=== PATIENT | female | born 1940 | race Caucasian/White ===

== ENCOUNTER 2020-05-26 10:25 | Emergency (ER) | payer BC, SELFPAY ==
--- NOTE | 2020-05-26 11:03 | ED_ITS ---
HPI - Abdominal Pain General Chief Complaint: Abdominal Pain Stated Complaint: abd pain Time Seen by Provider: 05/26/20 11:03 Source: patient and old records reviewed Mode of arrival: ambulatory Limitations: no limitations History of Present Illness HPI narrative: reports abdominal pain since almost 1 week but notes 1 month of almost 20lb weight loss, early satiety she is s/p hysterectomy and oophorectomy, came in today after her daughter urged her to have this checked out. MD elicited complaint: abdominal pain Pertinent past history: none Onset (ago): day(s) (5) Pain Consistency: constant Location: epigastric Severity: moderate Quality: aching and fullness Radiation: back Migration to: no migration Exacerbating factors: eating Relieving factors: nothing Associated symptoms: nausea, chills and other (weakness) Related Data Home Medications Medication Instructions Recorded Confirmed amlodipine 1 tab PO DAILY 05/26/20 05/26/20 Previous Rx's Medication Instructions Recorded famotidine [Pepcid] 20 mg PO DAILY PRN #30 tab 05/26/20 hydrocodone-acetaminophen 1 tab PO Q6H PRN #12 tab 05/26/20 ondansetron 4 mg PO Q8H PRN #20 tab 05/26/20 Allergies Allergy/AdvReac Type Severity Reaction Status Date / Time Sulfa (Sulfonamide Allergy Mild RASH Verified 05/26/20 11:20 Antibiotics) [SULFA (SULFONAMIDE ANTIBIOTICS)] Review of Systems Review of Systems Constitutional : pos Weight loss, No Fever, pos Chills ENT/Mouth : No sore throat, No Rhinorrhea Eyes: No Swelling, No Redness Cardiovascular : No Chest Pain, No SOB, NoEdema Respiratory : No Cough, No Sputum, No Wheezing Gastrointestinal : Positive Nausea, no Vomiting, no Diarrhea, positive abdominal Pain, No Hematochezia, No Melena Genitourinary : No Dysuria, No Urinary Frequency, No Hematuria, No Urgency Musculoskeletal : No joint pain, No Myalgias, No Joint Swelling Skin : No Skin Lesions, No rash Neuro : pos Weakness, No Numbness, No Dizziness, No Headache Psych : No Anxiety/Panic, No Depression Heme/Lymph: No Bruising, No Lymphadenopathy Endocrine : No Polyuria, No Polydipsia All other systems reviewed and are negative. Physical Exam Vital Signs: Vital Signs: Last Vital Signs Temp 98.3 F 05/26/20 11:20 Pulse 70 01/26/21 14:08 Resp 14 05/26/20 14:08 BP 155/78 H 05/26/20 14:08 Pulse Ox 96 05/26/20 14:08 Body Mass Index 27.4 Appearance: Alert. Oriented X3. No acute distress. Eyes: Pupils equal, round and reactive to light. ENT: Pharynx normal. Neck: Normal inspection. Neck supple. CVS: Normal heart rate and rhythm. Pulses normal. Respiratory: No respiratory distress. Breath sounds normal. Abdomen: Soft and mild epigastric ttp no rebound or guarding. Skin: Skin warm and dry. Normal skin color. Normal skin turgor. Extremities: No lower extremity edema. No calf ttp Neuro: Oriented X 3. No motor deficit. No sensory deficit. Course Course Course Narrative: discussed findings with patient and need for MRI and MRCP - patient aware of note states her GB surgery had complications so findings could be related to that MDM - Abdominal Pain MDM Narrative Medical decision making narrative: 80 yo female with hx of HTN, hysterectomy/cholecystectomy oophorectomy comes in with almost 20lb weight loss, weakness, early satiety for 1 month over the past week noted upper abdominal pain, at this time will need labs, IV morphine for pain, EKG, CT scan for mass. Lab Data Result diagrams: 05/26/20 11:44 05/26/20 11:44 Labs: Lab Results 05/26/20 05/26/20 05/26/20 Range/Units 11:44 11:44 11:44 WBC 6.4 (4.8-10.8) X10*3/uL RBC 4.40 (4.20-5.50) X10*6/uL Hgb 14.2 (12.0-16.0) g/dl Hct 43.4 (37-47) % MCV 98.6 H (80-98) fL MCH 32.3 (27.0-33.0) pg MCHC 32.7 (31.0-35.0) g/dl RDW 11.9 (11.0-16.0) % Plt Count 293 (160-400) X10*3/uL MPV 8.8 L (9.4-12.3) fL Immature Gran % (Auto) 0.2 (0.0-0.4) % Neut % (Auto) 63.7 (45-73) % Lymph % (Auto) 25.7 (20-40) % [place] % (Auto) 6.3 (2-11) % Eos % (Auto) 3.5 (0-4) % Baso % (Auto) 0.6 (0-2) % Lymph # (Auto) 1.6 (1.2-4.9) X10*3/uL [place] # (Auto) 0.4 (0.1-1.2) X10*3/uL Eos # (Auto) 0.2 (0.0-0.4) X10*3/uL Baso # (Auto) 0.0 (0.0-0.2) X10*3/uL Abs Immat Gran (auto) 0.01 (0.00-0.03) X10*3/uL Absolute Neuts (auto) 4.1 (2.0-8.3) X10*3/uL Absolute Nucleated RBC 0.000 (0.0-0.012) X10*3/uL Nucleated RBC % (auto) 0.0 (0.0-0.2) /100WBC PT 11.9 (10.8-13.0) SEC INR 1.0 (0.9-1.1) APTT 38.8 H (24.1-38.0) SEC Sodium 143 (135-145) mmol/L Potassium 4.1 (3.3-5.1) mmol/l Chloride 103 (96-108) mmol/L Carbon Dioxide 29 (22-29) mmol/L Anion Gap 15 (12-20) BUN 16 (9-16) mg/dL Creatinine 0.81 (0.5-1.4) mg/dL Estim Creat Clear Calc 44.2 Estimated GFR > 60 Random Glucose 90 (60-115) mg/dL Calcium 9.8 (8.4-10.2) mg/dL Magnesium 2.4 (1.6-2.6) mg/dL Total Bilirubin 0.5 (0.0-1.0) mg/dL Direct Bilirubin 0.2 (0.0-0.5) mg/dL AST 18 (5-31) U/L ALT 12 (0-31) U/L Alkaline Phosphatase 58 (39-117) U/L Troponin I High Sens (<3.5-17.0) ng/L Total Protein 6.8 (6.5-8.0) g/dL Albumin 4.6 (3.5-5.0) g/dL Lipase (8-78) U/L COVID-19 ([facility]) (Negative) COVID-19 Clin Com 05/26/20 05/26/20 05/26/20 Range/Units 11:45 11:45 11:45 WBC (4.8-10.8) X10*3/uL RBC (4.20-5.50) X10*6/uL Hgb (12.0-16.0) g/dl Hct (37-47) % MCV (80-98) fL MCH (27.0-33.0) pg MCHC (31.0-35.0) g/dl RDW (11.0-16.0) % Plt Count (160-400) X10*3/uL MPV (9.4-12.3) fL Immature Gran % (Auto) (0.0-0.4) % Neut % (Auto) (45-73) % Lymph % (Auto) (20-40) % [place] % (Auto) (2-11) % Eos % (Auto) (0-4) % Baso % (Auto) (0-2) % Lymph # (Auto) (1.2-4.9) X10*3/uL [place] # (Auto) (0.1-1.2) X10*3/uL Eos # (Auto) (0.0-0.4) X10*3/uL Baso # (Auto) (0.0-0.2) X10*3/uL Abs Immat Gran (auto) (0.00-0.03) X10*3/uL Absolute Neuts (auto) (2.0-8.3) X10*3/uL Absolute Nucleated RBC (0.0-0.012) X10*3/uL Nucleated RBC % (auto) (0.0-0.2) /100WBC PT (10.8-13.0) SEC INR (0.9-1.1) APTT (24.1-38.0) SEC Sodium (135-145) mmol/L Potassium (3.3-5.1) mmol/l Chloride (96-108) mmol/L Carbon Dioxide (22-29) mmol/L Anion Gap (12-20) BUN (9-16) mg/dL Creatinine (0.5-1.4) mg/dL Estim Creat Clear Calc Estimated GFR Random Glucose (60-115) mg/dL Calcium (8.4-10.2) mg/dL Magnesium (1.6-2.6) mg/dL Total Bilirubin (0.0-1.0) mg/dL Direct Bilirubin (0.0-0.5) mg/dL AST (5-31) U/L ALT (0-31) U/L Alkaline Phosphatase (39-117) U/L Troponin I High Sens < 3.5 (<3.5-17.0) ng/L Total Protein (6.5-8.0) g/dL Albumin (3.5-5.0) g/dL Lipase 11 (8-78) U/L COVID-19 ([facility]) Negative (Negative) COVID-19 Clin Com See Note ECG Data Attestation: I personally reviewed and interpreted this ECG as follows: ECG interpretation date: 05/26/20 ECG interpretation time: 11:43 Interpretation: Rate: 71 Rhythm: NSR [place]: left Normal P waves. Normal CECILIO. Normal QRS complex. ST T wave : normal qTC: normal prior studies: no acute ischemia The study has been interpreted contemporaneously by me. . Discharge Plan Discharge Clinical Impression: Abdominal pain Qualifiers: Abdominal location: epigastric Qualified Code(s): R10.13 - Epigastric pain Patient Disposition: Home, Self-Care Instructions: Abdominal Pain (ED) Additional Instructions: CT scan: OF NOTE IF YOU HAD ISSUES DURING SURGERY THIS COULD BE NORMAL BUT YOU STILL NEED MRI/MRCP Interval cholecystectomy. New or increasing intrahepatic extrahepatic biliary duct dilatation and mild dilatation of the main pancreatic duct in the head of the pancreas. No stone seen. Pancreatic mass is not appreciated. Possible ampullary lesion should be considered. Follow-up MR of the pancreas with MRCP should be considered. Severe diverticulosis of the colon. No evidence of diverticulitis. Slight interval increase in size in left adrenal lesion down to represent a fat-containing benign lesion on previous MRI. Stable small liver lesions found to represent hemangiomas. Prescriptions: New hydrocodone-acetaminophen 5-325 mg tablet 1 tab PO Q6H PRN (Reason: pain) Qty: 12 RF: 0 famotidine [Pepcid] 20 mg tablet 20 mg PO DAILY PRN (Reason: abdominal discomfort) Qty: 30 RF: 0 ondansetron 4 mg tablet,disintegrating 4 mg PO Q8H PRN (Reason: nausea and vomiting) Qty: 20 RF: 0 No Action amlodipine 5 mg tablet 1 tab PO DAILY RF: 0 Referrals: Kristopher Larsen MD [Primary Care Provider] - 2 days [facility] Past Medical History Attestation statement: The following information was validated with the patient. Source: old records reviewed Medical History (Updated 05/26/20 @ 14:52 by Maria E Laura DO) Back pain Breast cancer Chronic headaches UTI (urinary tract infection) Surgical History (Updated 05/26/20 @ 11:04 by Maria E Laura DO) History of hysterectomy Hx of cholecystectomy Social History Social History (Updated 05/26/20 @ 11:03 by Maria E Laura DO) Smoking Status: Never smoker Use of substances other than those prescribed or required for medical reasons: No Advance Directives: No Advance Directives Information Provided: Yes
--- NOTE | 2020-05-26 11:17 | CT_ITS ---
EXAMINATION: CT ABDOMEN AND PELVIS WITH CONTRAST CLINICAL INFORMATION: COMPARISON: None TECHNIQUE: Multidetector volumetric images were obtained from the superior aspect of the liver through the pubic symphysis following administration 85 mL of Omnipaque 350 intravenous contrast. Sagittal and coronal reformatted images were obtained on the technologist's workstation. Oral contrast: Yes This CT examination was performed using dose optimization techniques as appropriate, variously including the following: *Automated exposure control *Adjustment of mA and/or kV according to patient size (this includes techniques or standardized protocols for targeted exams where dose is matched to indication/reason for exam; i.e. extremities or head) *Use of iterative reconstruction technique DLP: 662 mGy-cm FINDINGS: LUNG BASES: The visualized lung bases are unremarkable. LIVER, GALLBLADDER, AND BILIARY TREE: There is intrahepatic and extrahepatic biliary duct dilatation. The common bile duct is dilated down to the head of the pancreas. Common bile duct measures 1.3 cm. No stone is appreciated by CT scan. There are 2 low-attenuation lesions in the liver measuring 1 cm axial image 9 series 3 and peripheral right lobe measuring 1 cm axial image 13 series. There is question of a third liver lesion in the left lobe axial image 16 series 3 measuring 1 cm. These are similar to previous MRI and found to represent hemangiomas. The gallbladder has been removed. This is new in the interval from 2014 2015 exam. PANCREAS: There is slight dilatation of the main pancreatic duct in the head of the pancreas measuring 4 mm. This is new or increased from previous exams. SPLEEN: Unremarkable. ADRENAL GLANDS: There is a 1.5 x 2.1 cm low-attenuation left adrenal lesion. This is slightly increased in size from 1.4 x 1.8 cm on most recent exam May 2015. This has signal loss on previous MRI suggestive of a benign fat-containing adrenal lesion. The right adrenal gland is normal. KIDNEYS AND URETERS: The kidneys are normal in size, shape, and attenuation. No hydronephrosis, hydroureter, or calculi seen. No perinephric stranding. BLADDER: Unremarkable. GASTROINTESTINAL TRACT: There is diverticulosis of the colon. No evidence of diverticulitis is seen. The appendix is unremarkable. There is a small hiatal hernia. The stomach is otherwise unremarkable. ABDOMINAL WALL: There is a small umbilical hernia containing fat. LYMPH NODES: Normal. VASCULAR: Unremarkable. PELVIC VISCERA: The uterus appears to have been removed. No pelvic mass is seen. OSSEOUS STRUCTURES: There is curvature of the lower pole lumbar spine and degenerative change. There is a heterogeneous lucent lesion in the L4 vertebral body that appears similar to previous exam probably presents a atypical appearing hemangioma. CT/CT abdomen pelvis w con IMPRESSION: Interval cholecystectomy. New or increasing intrahepatic extrahepatic biliary duct dilatation and mild dilatation of the main pancreatic duct in the head of the pancreas. No stone seen. Pancreatic mass is not appreciated. Possible ampullary lesion should be considered. Follow-up MR of the pancreas with MRCP should be considered. Severe diverticulosis of the colon. No evidence of diverticulitis. Slight interval increase in size in left adrenal lesion down to represent a fat-containing benign lesion on previous MRI. Stable small liver lesions found to represent hemangiomas.
--- NOTE | 2020-05-26 11:18 | ECG_ITS ---
Test Reason : FLANK PAIN Blood Pressure : / mmHG Vent. Rate : 071 BPM Atrial Rate : 071 BPM P-R Int : 164 ms QRS Dur : 084 ms QT Int : 406 ms P-R-T Axes : 038 -11 036 degrees QTc Int : 441 ms Normal sinus rhythm Normal ECG When compared with ECG of 01-NOV-2015 11:52, No significant change was found Referred By: Maria E Laura Electronically Signed By:Sagar Pritchard
[2020-05-26 11:20] VITALS: BP 167/85; PULSE 66; RESP 18; TEMP 36.8; O2SAT 95; BMI 27.4
[2020-05-26 11:51] LABS: MANUAL DIFF FLAG NO
[2020-05-26] MEDS: ondansetron HCL 4 MG/2 ML VIAL IVPUSH (11:55)
[2020-05-26] MEDS: Morphine Sulfate 4 MG/ML CARTRIDGE IVPUSH (11:55)
[2020-05-26] MEDS: 0.9 % Sodium Chloride 500 ML IV (12:00)
[2020-05-26 12:01] VITALS: BP 155/71; PULSE 73; RESP 15; O2SAT 95
[2020-05-26 12:01] LABS: Basophils Percent Auto 0.6 % (0-2); Eosinophils Absolute Auto 0.2 X10*3/uL (0.0-0.4); Eosinophils Percent Auto 3.5 % (0-4); Hematocrit 43.4 % (37-47); Hemoglobin 14.2 g/dl (12.0-16.0); Imm Gran Abs Auto 0.01 X10*3/uL (0.00-0.03); Imm Gran Pct Auto 0.2 % (0.0-0.4); Lymphocytes Absolute Auto 1.6 X10*3/uL (1.2-4.9); Lymphocytes Percent Auto 25.7 % (20-40); Mean Corpuscular HGB Conc 32.7 g/dl (31.0-35.0); Mean Corpuscular Hemoglobin 32.3 pg (27.0-33.0); Mean Corpuscular Volume 98.6 fL (80-98); Mean Platelet Volume 8.8 fL (9.4-12.3); Monocytes Absolute Auto 0.4 X10*3/uL (0.1-1.2); Monocytes Percent Auto 6.3 % (2-11); Neutrophils Absolute Auto 4.1 X10*3/uL (2.0-8.3); Neutrophils Percent Auto 63.7 % (45-73); Platelet Count 293 X10*3/uL (160-400); Red Cell Distribution Width 11.9 % (11.0-16.0); White Blood Count 6.4 X10*3/uL (4.8-10.8)
[2020-05-26 12:04] LABS: Prothrombin Time 11.9 SEC (10.8-13.0)
[2020-05-26 12:07] LABS: Partial Thromboplastin Time 38.8 SEC (24.1-38.0)
[2020-05-26 12:19] VITALS: BP 137/62; PULSE 70; RESP 12; O2SAT 99
[2020-05-26 12:20] LABS: Alanine Aminotransferase 12 U/L (0-31); Albumin Level 4.6 g/dL (3.5-5.0); Alkaline Phosphatase 58 U/L (39-117); Anion Gap 15 (12-20); Aspartate Amino Transferase 18 U/L (5-31); Bilirubin Direct 0.2 mg/dL (0.0-0.5); Bilirubin Total 0.5 mg/dL (0.0-1.0); Blood Urea Nitrogen 16 mg/dL (9-16); Calcium 9.8 mg/dL (8.4-10.2); Carbon Dioxide 29 mmol/L (22-29); Chloride 103 mmol/L (96-108); Creatinine Clr Calc Pharmacy 44.2; Estimated Glomerular Filt Rate > 60; Glucose Random 90 mg/dL (60-115); Magnesium 2.4 mg/dL (1.6-2.6); Potassium 4.1 mmol/l (3.3-5.1); Sodium 143 mmol/L (135-145); Total Protein 6.8 g/dL (6.5-8.0)
[2020-05-26 12:21] LABS: Lipase 11 U/L (8-78)
--- NOTE | 2020-05-26 12:27 | PC.NURSE ---
reassessed patient 15min after giving zofran and morphine. pt states she still feels dizzy but denies pain.
[2020-05-26 12:29] LABS: COVID-19 Test Negative (Negative)
[2020-05-26 12:35] LABS: Troponin-I High Sensitivity < 3.5 ng/L (<3.5-17.0)
[2020-05-26] MEDS: iohexoL 350 MG/ML 100 ML INFUS..BTL 85 ML IV (13:03)
[2020-05-26 14:08] VITALS: BP 155/78; PULSE 70; RESP 14; O2SAT 96
[2020-05-26 14:48] LABS: Glucose Urine UA NEG (NEG); Leukocyte Esterase Urine NEG (NEG); Nitrite Urine NEG (NEG); Urine Blood NEG (NEG); Urine Ketones 5 MG/DL (NEG); Urine Protein NEG (NEG-TRACE)
[2020-05-26 14:51] LABS: Appearance Urine CLEAR; Color Urine YELLOW
== END 2020-05-26 15:30 | disposition home or self-care (01) ==
PROVIDERS: Emergency Provider Emergency Medicine; PCP Internal Medicine
DX: R10.13 Epigastric pain (principal); Z20.822 Contact with and (suspected) exposure to COVID-19; R93.5 Abnormal findings on diagnostic imaging of other abdominal regions, including retroperitoneum; Z85.3 Personal history of malignant neoplasm of breast; Z87.440 Personal history of urinary (tract) infections
CPT/HCPCS: 36415; 74177; 80048; 80076; 81003; 83690; 83735; 84484; 85025; 85610; 85730; 87635; 93005; 96361; 96374; 96375; 99284; 99285; J2270; J2405; Q9967

== ENCOUNTER 2022-04-05 10:12 | Emergency (ER) | payer BC, SELFPAY ==
--- NOTE | 2022-04-05 10:21 | ECG_ITS ---
Test Reason : chest pain Blood Pressure : / mmHG Vent. Rate : 072 BPM Atrial Rate : 072 BPM P-R Int : 152 ms QRS Dur : 082 ms QT Int : 410 ms P-R-T Axes : 027 -17 042 degrees QTc Int : 448 ms Normal sinus rhythm Minimal voltage criteria for LVH, may be normal variant ( R in aVL ) Borderline ECG When compared with ECG of 26-MAY-2020 11:36, No significant change was found Referred By: Generic ED Physician Electronically Signed By:KELLY SHEN MD
[2022-04-05 10:47] LABS: MANUAL DIFF FLAG NO
[2022-04-05 10:49] LABS: Basophils Percent Auto 0.5 % (0-2); Eosinophils Absolute Auto 0.1 X10*3/uL (0.0-0.4); Eosinophils Percent Auto 3.6 % (0-4); Hematocrit 41.7 % (37.0-47.0); Hemoglobin 13.9 g/dl (12.0-16.0); Imm Gran Abs Auto 0.01 X10*3/uL (0.00-0.03); Imm Gran Pct Auto 0.3 % (0.0-0.4); Lymphocytes Absolute Auto 1.2 X10*3/uL (1.2-4.9); Lymphocytes Percent Auto 32.3 % (20-40); Mean Corpuscular HGB Conc 33.3 g/dl (31.0-35.0); Mean Corpuscular Hemoglobin 32.1 pg (27.0-33.0); Mean Corpuscular Volume 96.3 fL (80.0-98.0); Mean Platelet Volume 8.5 fL (9.4-12.3); Monocytes Absolute Auto 0.4 X10*3/uL (0.1-1.2); Monocytes Percent Auto 10.7 % (2-11); Neutrophils Percent Auto 52.6 % (45-73); Platelet Count 266 X10*3/uL (160-400); Red Blood Count 4.33 X10*6/uL (4.20-5.50); Red Cell Distribution Width 12.1 % (11.0-16.0); White Blood Count 3.8 X10*3/uL (4.8-10.8)
[2022-04-05 11:04] LABS: Anion Gap 11 (12-20); Blood Urea Nitrogen 12 mg/dL (9-16); Calcium 9.4 mg/dL (8.4-10.2); Carbon Dioxide 29 mmol/L (22-29); Chloride 102 mmol/L (96-108); Estimated Glomerular Filt Rate > 60; Glucose Random 103 mg/dL (60-115); Potassium 4.1 mmol/L (3.3-5.1); Sodium 138 mmol/L (135-145)
[2022-04-05 11:06] VITALS: BP 137/86; PULSE 69; RESP 14; TEMP 36.6; O2SAT 97; BMI 27.2
--- NOTE | 2022-04-05 11:09 | ED_ITS ---
HPI - General Adult General Chief complaint: Weakness <Jina Arambula MD - Last Filed: 04/05/22 11:10> Stated complaint: N/V/D Weakness/Chest pressure <Jina Arambula MD - Last Filed: 04/05/22 11:10> Time Seen by Provider: 04/05/22 16:24 <Jina Arambula MD - Last Filed: 04/05/22 11:10> Source: patient <Ephraim Wheeler MD - Last Filed: 04/05/22 19:26> Mode of arrival: ambulatory <Ephraim Wheeler MD - Last Filed: 04/05/22 19:26> Limitations: no limitations <Ephraim Wheeler MD - Last Filed: 04/05/22 19:26> History of Present Illness HPI narrative: Patient came here for diarrhea and nausea for last 2 days yesterday patient had multiple episodes of watery stool none today but did not eat much and feel nauseated feels weak temperature at home was 91 degrees but on arrival it is 98 patient had seafood 2 days ago her had same kind of food but no symptoms no fever no chills no CP abdominal pain no use of antibiotic or recent travel patient does feel weak at this time <Ephraim Wheeler MD - Last Filed: 04/05/22 19:26> Related Data Home medications: Home Medications Medication Instructions Recorded Confirmed amlodipine 5 mg tablet 1 tab PO DAILY 05/26/20 05/26/20 Previous Rx's Medication Instructions Recorded famotidine 20 mg tablet (Pepcid) 20 mg PO DAILY PRN abdominal 05/26/20 discomfort #30 tabs hydrocodone 5 mg-acetaminophen 325 1 tab PO Q6H PRN pain #12 tabs 05/26/20 mg tablet ondansetron 4 mg disintegrating 4 mg PO Q8H PRN nausea and 05/26/20 tablet vomiting #20 tabs <Jina Arambula MD - Last Filed: 04/05/22 11:10> Allergies/adverse reactions: Allergies Allergy/AdvReac Type Severity Reaction Status Date / Time Sulfa (Sulfonamide Allergy Mild RASH Verified 05/26/20 11:20 Antibiotics) [SULFA (SULFONAMIDE ANTIBIOTICS)] <Jina Arambula MD - Last Filed: 04/05/22 11:10> Review of Systems Review of Systems: Yes all other systems are reviewed and are negative <Ephraim Wheeler MD - Last Filed: 04/05/22 19:26> [facility] Past Medical History Medical History: Medical History Back pain Breast cancer Chronic headaches UTI (urinary tract infection) <Jina Arambula MD - Last Filed: 04/05/22 11:10> Surgical History: Surgical History History of hysterectomy Hx of cholecystectomy <Jina Arambula MD - Last Filed: 04/05/22 11:10> Social History Social History: Social History Alcohol intake: never Smoked in Last 30 Days: No Use of substances other than those prescribed or required for medical reasons: No Advance Directives: No Advance Directives Information Provided: No <Jina Arambula MD - Last Filed: 04/05/22 11:10> Physical Exam ED Vital Signs: Vital Signs - 24 hr 04/05/22 11:06 04/05/22 17:33 04/05/22 19:10 Temperature 98 F 98.2 F Pulse Rate 69 59 58 Respiratory Rate 14 18 15 Blood Pressure 137/86 153/58 H 167/68 H Pulse Oximetry 97 96 96 Oxygen Delivery Method Room Air Room Air Room Air BMI result Body Mass Index 27.2 <Jina Arambula MD - Last Filed: 04/05/22 11:10> Vital Signs - 24 hr 04/05/22 11:06 04/05/22 17:33 04/05/22 19:10 Temperature 98 F 98.2 F Pulse Rate 69 59 58 Respiratory Rate 14 18 15 Blood Pressure 137/86 153/58 H 167/68 H Pulse Oximetry 97 96 96 Oxygen Delivery Method Room Air Room Air Room Air BMI result Body Mass Index 27.2 <Ephraim Wheeler MD - Last Filed: 04/05/22 19:26> Appearance: Alert. Oriented X3. No acute distress. Eyes: PERRLA, No Nystagmus ENT: Pharynx normal. Oral Mucosa dry Neck: Normal inspection. Neck supple. CVS: Normal heart rate and rhythm. Pulses normal. Respiratory: No respiratory distress. Equal air entry bilateral, no wheezing/rales/rhonchi Abdomen: Soft and nontender. Bowel sounds are present, no mass palpable, no CVA tenderness Skin: Skin warm and dry. Normal skin color. Normal skin turgor. Extremities: No lower extremity edema. No calf tenderness Neuro: Oriented X 3. No motor deficit. No sensory deficit.No cerebellar signs , cranial nerves II-XII intact <Ephraim Wheeler MD - Last Filed: 04/05/22 19:26> Course Course Course Narrative: 81F feeling weak, vomiting without blood, no fever. VS Reviewed GEN: NAD Lungs: CTAB CVS: RRR ABD: NT/ND <Jina Arambula MD - Last Filed: 04/05/22 11:10> Medications Administered Discontinued Medications Generic Name Dose Route Start Last Admin Trade Name Freq PRN Reason Stop Dose Admin Sodium Chloride 1,000 mls @ 999 mls/hr 04/05/22 16:30 04/05/22 18:43 Ns IV 04/05/22 17:30 Infused .Q1H1M ONE Infusion <Jina Arambula MD - Last Filed: 04/05/22 11:10> Medications Administered Discontinued Medications Generic Name Dose Route Start Last Admin Trade Name Freq PRN Reason Stop Dose Admin Sodium Chloride 1,000 mls @ 999 mls/hr 04/05/22 16:30 04/05/22 18:43 Ns IV 04/05/22 17:30 Infused .Q1H1M ONE Infusion <Ephraim Wheeler MD - Last Filed: 04/05/22 19:26> Medical Decision Making Medical Decision Making [facility] Narrative: Patient lab workup normal taking p.o. fluids given IV fluids feeling much better now discharged home <Ephraim Wheeler MD - Last Filed: 04/05/22 19:26> Differential Diagnoses: Differential diagnosis (Gastroenteritis, pancreatitis, gastritis, food poisoning) Differential Diagnosis: The differential diagnosis associated with the patient?s presentation includes: <Ephraim Wheeler MD - Last Filed: 04/05/22 19:26> Independent interpretation of EKG, rhythm strip, radiology study: Independent interp EKG,rhythm strip, radiology study My interpretation is <Ephraim Wheeler MD - Last Filed: 04/05/22 19:26> Discharge Plan Discharge Clinical Impression: Acute gastroenteritis <Jina Arambula MD - Last Filed: 04/05/22 11:10> Patient Disposition: Home, Self-Care <Jina Arambula MD - Last Filed: 04/05/22 11:10> Instructions: Gastroenteritis (ED) <Jina Arambula MD - Last Filed: 04/05/22 11:10> Additional Instructions: Drink plenty of fluids Follow with PCP if any concerns <Jina Arambula MD - Last Filed: 04/05/22 11:10> Prescriptions: No Action amlodipine 5 mg tablet 1 tab PO DAILY Rx Instructions: BLOOD PRESSURE HAS BEEN LOW hydrocodone-acetaminophen 5-325 mg tablet 1 tab PO Q6H PRN (Reason: pain) Qty: 12 0RF famotidine [Pepcid] 20 mg tablet 20 mg PO DAILY PRN (Reason: abdominal discomfort) Qty: 30 0RF ondansetron 4 mg tablet,disintegrating 4 mg PO Q8H PRN (Reason: nausea and vomiting) Qty: 20 0RF <Jina Arambula MD - Last Filed: 04/05/22 11:10>
[2022-04-05 11:33] LABS: Appearance Urine Clear; Color Urine Yellow; Glucose Urine UA Negative (Negative); Leukocyte Esterase Urine Trace (Negative); Nitrite Urine Negative (Negative); PH 6.5 (5.0-9.0); Specific Gravity - Urine <= 1.005 (1.005-1.025); UMIC TRIGGER UACC YES; Urine Blood Negative (Negative); Urine Ketones Negative (Negative); Urine Protein Negative (Neg-Trace)
[2022-04-05 11:41] LABS: Bacteria Urine None Seen (None Seen); Hyaline Casts Urine 0-2 /LPF (0-2); RBC Urine 0-2 /HPF (0-2); Squamous Epithelial Cell Urine 0-2 /HPF (0-2); WBC Urine 0-5 /HPF (0-5)
[2022-04-05 12:13] LABS: Influenza A PCR NEGATIVE (Negative); Influenza B PCR NEGATIVE (Negative); Resp Syncy Virus RNA Qual PCR NEGATIVE (Negative); SARS COV2 PCR INHOUSE NEGATIVE (Negative)
[2022-04-05 17:33] VITALS: BP 153/58; PULSE 59; RESP 18; O2SAT 96
[2022-04-05] MEDS: 0.9 % Sodium Chloride 1,000 ML 999 ML IV (17:50)
[2022-04-05 18:20] LABS: Lipase 15 U/L (8-78)
[2022-04-05 19:10] VITALS: BP 167/68; PULSE 58; RESP 15; TEMP 36.8; O2SAT 96
== END 2022-04-05 19:31 | disposition home or self-care (01) ==
PROVIDERS: Emergency Provider Internal Medicine; PCP Internal Medicine
DX: K52.9 Noninfective gastroenteritis and colitis, unspecified (principal); R53.1 Weakness; R11.2 Nausea with vomiting, unspecified; Z20.822 Contact with and (suspected) exposure to COVID-19; Z79.899 Other long term (current) drug therapy
CPT/HCPCS: 0241U; 36415; 80048; 81001; 83690; 85025; 93005; 96360; 99284; 99285

== ENCOUNTER 2022-09-14 18:30 | Emergency (ER) | payer MEDICARE, SELFPAY ==
--- NOTE | ~2022-09-14 | CT_ITS ---
EXAMINATION: CT ABDOMEN AND PELVIS WITHOUT CONTRAST CLINICAL INFORMATION: Back pain. Left upper quadrant pain. COMPARISON: Baseline CT of the abdomen and pelvis done on 04/21/2015 and MRI of the abdomen done on 05/06/2015 MRI of the pelvis done on 05/08/[address] recent prior CT of the abdomen and pelvis done on 05/26/2020. TECHNIQUE: Multidetector volumetric imaging was performed from the superior aspect of the liver through the pubic symphysis. Sagittal and coronal reformatted images were obtained on the technologist's workstation. This CT examination was performed using dose optimization techniques as appropriate, variously including the following: *Automated exposure control *Adjustment of mA and/or kV according to patient size (this includes techniques or standardized protocols for targeted exams where dose is matched to indication/reason for exam; i.e. extremities or head) *Use of iterative reconstruction technique DLP: 531 mGy-cm FINDINGS: LUNG BASES: The visualized lung bases are unremarkable. LIVER, GALLBLADDER, AND BILIARY TREE: Persistent moderate intrahepatic biliary ductal dilatation is noted with dilated common bile duct seen to the level of the ampulla, appears similar to prior most recent CT of the abdomen and pelvis dated 05/26/2020. The gallbladder is surgically absent. Previously described, clinically known multifocal presumed hemangioma is are not visualized on this nonenhanced study. PANCREAS: Subtle pancreatic ductal prominence is present, otherwise no discrete pancreatic mass is visualized on this nonenhanced study. SPLEEN: Unremarkable. ADRENAL GLANDS: The right adrenal gland is unremarkable. There is a 2 cm stable left adrenal adenoma present, unchanged since 04/21/2015. KIDNEYS AND URETERS: The kidneys are normal in size, shape, and attenuation. No hydronephrosis, hydroureter, or calculi seen. No perinephric stranding. Incidental note is made of bilateral extrarenal pelvis. BLADDER: Unremarkable. GASTROINTESTINAL TRACT: Colonic diverticulosis without any CT features of superimposed acute diverticulitis. Nonvisualized appendix without any inflammatory changes around the cecum. Significant fecal residual is noted throughout the entire large bowel. A short segment narrowing is present in the distal part of the sigmoid colon (534:4). Direct visualization is recommended, if not recently performed for further clarification. There are no pericolonic lymphadenopathy present. ABDOMINAL WALL: Small umbilical fat-containing hernia. Supra umbilical fat containing ventral hernia is also present, similar to prior study dated 05/26/2020. LYMPH NODES: There are no pathologically enlarged retroperitoneal, pelvic and/or inguinal lymphadenopathy. VASCULAR: Diffuse atherosclerotic disease of the aorta and is branches without aneurysm formation, unchanged. PELVIC VISCERA: There is no pelvic mass present. No evidence of any free fluid and/or free air. OSSEOUS STRUCTURES: Moderate diffuse osteopenia and stable hemangioma involving L4 and multilevel degenerative spondylosis. CT/CT abdomen pelvis wo IV con IMPRESSION: 1. No CT evidence of any acute intra-abdominal and/or intrapelvic pathology is present. 2. Persistent moderate intrahepatic biliary ductal dilatation and dilated common bile duct seen to the level of the ampulla, appears similar to prior most recent CT of the abdomen and pelvis dated 05/26/2020. 3. Stable 2 cm left adrenal adenoma, unchanged since 04/21/2015. 4. Colonic diverticulosis without any CT features of superimposed acute diverticulitis. 5. Short segment narrowing is present in the distal part of the sigmoid colon, for which direct visualization is recommended, if not recently performed for further clarification. 6. Moderate diffuse osteopenia and stable hemangioma involving L4 and multilevel degenerative spondylosis. Fleischner guidelines were followed.
--- NOTE | 2022-09-14 18:39 | ED_ITS ---
HPI - Abdominal Pain General Chief Complaint: Back Pain/Injury <TERENCE Nuñez - Last Filed: 09/14/22 18:50> Stated Complaint: abd pain <TERENCE Nuñez - Last Filed: 09/14/22 18:50> Time Seen by Provider: 09/14/22 20:07 <TERENCE Nuñez - Last Filed: 09/14/22 18:50> Source: patient <TERENCE Nieves - Last Filed: 09/14/22 22:43> Mode of arrival: ambulatory <TERENCE Nieves - Last Filed: 09/14/22 22:43> Limitations: no limitations <TERENCE Nieves Last Filed: 09/14/22 22:43> History of Present Illness HPI narrative: This is an 82-year-old female history of GERD, hypertension presenting to the emergency department for evaluation of epigastric pain with radiation to left flank for the past 2 days. Patient reports the pain is severe, intermittent in nature. Denies any pain like this in the past. Patient reports associated nausea however no vomiting. Patient denies urinary frequency, urgency, dysuria, fevers, chills, chest pain, shortness of breath, headache, urinary/bowel incontinence/retention, saddle paresthesias,, changes in gait, vision changes and dizziness. Last colonoscopy was 2-3 years ago w/ premalignant polyps. No rectal bleeding or changes in bowel habits. <TERENCE Nieves - Last Filed: 09/14/22 22:43> Related Data Home Medications: Home Medications Medication Instructions Recorded Confirmed amlodipine 5 mg tablet 1 tab PO DAILY 05/26/20 05/26/20 Previous Rx's Medication Instructions Recorded famotidine 20 mg tablet (Pepcid) 20 mg PO DAILY PRN abdominal 05/26/20 discomfort #30 tabs hydrocodone 5 mg-acetaminophen 325 1 tab PO Q6H PRN pain #12 tabs 05/26/20 mg tablet ondansetron 4 mg disintegrating 4 mg PO Q8H PRN nausea and 05/26/20 tablet vomiting #20 tabs lidocaine 5 % topical patch 1 patch topical DAILY PRN pain #15 09/14/22 ea morphine 15 mg immediate release 15 mg PO Q6H PRN pain 5 days #10 09/14/22 tablet tabs ondansetron 4 mg disintegrating 4 mg PO Q6H PRN nausea and 09/14/22 tablet vomiting #14 tabs <TERENCE Nuñez Last Filed: 09/14/22 18:50> Allergies/Adverse Reactions: Allergies Allergy/AdvReac Type Severity Reaction Status Date / Time Sulfa (Sulfonamide Allergy Mild RASH Verified 05/26/20 11:20 Antibiotics) [SULFA (SULFONAMIDE ANTIBIOTICS)] <TERENCE Nuñez Last Filed: 09/14/22 18:50> Review of Systems Review of Systems Constitutional : No Weight loss, No Fever, No Chills, No Fatigue, No Malaise ENT/Mouth : No sore throat, No Rhinorrhea Eyes: No Eye Pain, No Swelling, No Redness Cardiovascular : No Chest Pain, No SOB, No Dyspnea on Exertion, No Orthopnea, No Edema, No Palpitations Respiratory : No Cough, No Sputum, No Wheezing Gastrointestinal : + Nausea, No Vomiting, No Diarrhea, No Constipation, + abdom inal Pain, No Hematochezia, No Melena Genitourinary : No Dysuria, No Urinary Frequency, No Hematuria, Musculoskeletal : No joint pain, No Myalgias, No Joint Swelling Skin : No Skin Lesions, No rash Neuro : No Weakness, No Numbness, No Dizziness, No Headache Psych : No Anxiety/Panic, No Depression All other systems reviewed and are negative <TERENCE Nieves Last Filed: 09/14/22 22:43> Yes all other systems are reviewed and are negative <TERENCE Nieves Last Filed: 09/14/22 22:43> ON LICENSE OF [facility] Past Medical History Attestation statement: The following information was validated with the patient. <TERENCE Nieves Last Filed: 09/14/22 22:43> Source: old records reviewed and nursing notes reviewed <TERENCE Nieves ast Filed: 09/14/22 22:43> Medical History: Medical History Back pain Breast cancer Chronic headaches UTI (urinary tract infection) <TERENCE Nuñez Last Filed: 09/14/22 18:50> Surgical History: Surgical History History of hysterectomy Hx of cholecystectomy <TERENCE Nuñez - Last Filed: 09/14/22 18:50> Social History Social History: Social History Alcohol intake: never Smoked in Last 30 Days: No Use of substances other than those prescribed or required for medical reasons: No Advance Directives: No Advance Directives Information Provided: No <TERENCE Nuñez - Last Filed: 09/14/22 18:50> Physical Exam ED Vital Signs: Vital Signs - 24 hr 09/14/22 18:45 09/14/22 20:21 09/14/22 22:01 Temperature 98.9 F 98 F 98 F Pulse Rate 82 63 64 Respiratory Rate 18 18 16 Blood Pressure 167/82 H 152/67 H 129/68 Pulse Oximetry 97 96 92 Oxygen Delivery Method Room Air Room Air Room Air BMI result Body Mass Index 27.5 <TERENCE Nuñez - Last Filed: 09/14/22 18:50> Vital Signs - 24 hr 09/14/22 18:45 09/14/22 20:21 09/14/22 22:01 Temperature 98.9 F 98 F 98 F Pulse Rate 82 63 64 Respiratory Rate 18 18 16 Blood Pressure 167/82 H 152/67 H 129/68 Pulse Oximetry 97 96 92 Oxygen Delivery Method Room Air Room Air Room Air BMI result Body Mass Index 27.5 vss <TERENCE Nieves - Last Filed: 09/14/22 22:43> Appearance: Alert.? Oriented X3.? No acute distress.? Head: Normocephalic, atraumatic, no step-offs or deformities Eyes: Pupils equal, round and reactive to light.? CVS: Normal heart rate and rhythm.? Pulses normal.? Respiratory: No respiratory distress.? Breath sounds normal.? Abdomen: Soft and TTP to epigastric region and LUQ. Normal BS. Skin: Skin warm and dry.? Normal skin color.? Normal skin turgor.? Extremities: No lower extremity edema.? No calf ttp. 5/5 strength to bilateral upper and lower extremities Back: No midline tenderness, no C-spine tenderness, full range of motion, no CVA tenderness bilaterally Neuro: Oriented X 3.? No motor deficit.? No sensory deficit. CN 2-12 intact. AMbulating w/ steady gait normal coordination. <TERENCE Nieves - Last Filed: 09/14/22 22:43> Course Course Course Narrative: RME 82 yo female with a PMH breast cancer, asthma ,hypertension, and oo phertecomny of here for intermittent middle back pain radiating to her LUQ that feels contraction like. She is having regular stools without blood, reports no dysuria or blood in her urine. Plan: CBC, CMP, CT abdomen <TERENCE Nuñez - Last Filed: 09/14/22 18:50> Reevaluation(s) Reevaluation #1: CBC with no acute findings. Chemistry unremarkable. Normal lipase. UA without infection. No bacteria visualized. This could be musculoskeletal pain. Will give morphine. <TERENCE Nieves - Last Filed: 09/14/22 22:43> Time: 21:00 <TERENCE Nieves - Last Filed: 09/14/22 22:43> Reevaluation #2: CT of the abdomen and pelvis with no evidence of any acute intra-abdominal an or intrapelvic pathology. Persistent moderate intrahepatic bile early duct dilation common bile duct seen to the level to ambulate appears similar to previous scans. 2 cm left adrenal adenoma. Unchanged from previous. Colonic diverticulosis without diverticulitis. There is short segment narrowing in the distal part of the sigmoid colon. Spoke to my attending who recommends out patient GI f/u. <TERENCE Nieves - Last Filed: 09/14/22 22:43> Time: 21:12 <TERENCE Nieves Last Filed: 09/14/22 22:43> Reevaluation #3: Patient feeling bettter educated on CT findings, tollerating PO. Will have her follow up with GI. Educated patient on diagnosis and treatment plan, answered all question, patient verbalizes understanding. At this time patient will be discharged home, advised to return with new or worsening symptoms. Educated on worrisome signs and symptoms and when to return. At this time I feel comfortable discharge home. <TERENCE Nieves - Last Filed: 09/14/22 22:43> Time: 22:42 <TERENCE Nieves - Last Filed: 09/14/22 22:43> Medical Decision Making Medical Decision Making [facility] Narrative: 82-year-old female presents with epigastric pain with radiation to left flank region, with associated nausea . PE w/ Soft and TTP to epigastric region and LUQ. Normal BS. Concerns for UTI vs pylo vs kidney stone vs msk pain. No signs of acute abdomen, cauda equina, epidural abscess. Other differential malignancy Plan- labs,imaging, ua, <TERENCE Nieves - Last Filed: 09/14/22 22:43> Differential Diagnosis Differential Diagnoses: The differential diagnosis associated with the presentation includes <TERENCE Nieves - Last Filed: 09/14/22 22:43> Concerns for UTI vs pylo vs kidney stone vs msk pain. No signs of acute abdomen, cauda equina, epidural abscess. Other differential malignancy <TERENCE Nieves - Last Filed: 09/14/22 22:43> Admission/Observation Consideration of admission/observation: Escalation of care including admission/observation considered <TERENCE Nieves - Last Filed: 09/14/22 22:43> [place] <TEERNCE Nieves - Last Filed: 09/14/22 22:43> Consult Healthcare Provider Management of the patient was discussed with: Rn Peritoneal Dialysis ( ) <TERENCE Nieves - Last Filed: 09/14/22 22:43> Lab Data [facility] Lab Attestation statement: I reviewed the patient's lab results. <TERENCE Nieves - Last Filed: 09/14/22 22:43> Result Diagrams: 09/14/22 18:43 09/14/22 18:43 <TERENCE Nuñez - Last Filed: 09/14/22 18:50> Labs: Lab Results 09/14/22 09/14/22 09/14/22 Range/Units 18:43 18:43 19:36 WBC 7.2 (4.8-10.8) X10*3/uL RBC 4.07 L (4.20-5.50) X10*6/uL Hgb 13.2 (12.0-16.0) g/dl Hct 39.1 (37.0-47.0) % MCV 96.1 (80.0-98.0) fL MCH 32.4 (27.0-33.0) pg MCHC 33.8 (31.0-35.0) g/dl RDW 12.1 (11.0-16.0) % Plt Count 287 (160-400) X10*3/uL MPV 8.3 L (9.4-12.3) fL Immature Gran % (Auto) 0.3 (0.0-0.4) % Neut % (Auto) 50.1 (45-73) % Lymph % (Auto) 35.7 (20-40) % Anderson % (Auto) 8.9 (2-11) % Eos % (Auto) 4.4 H (0-4) % Baso % (Auto) 0.6 (0-2) % Lymph # (Auto) 2.6 (1.2-4.9) X10*3/uL Anderson # (Auto) 0.6 (0.1-1.2) X10*3/uL Eos # (Auto) 0.3 (0.0-0.4) X10*3/uL Baso # (Auto) 0.0 (0.0-0.2) X10*3/uL Abs Immat Gran (auto) 0.02 (0.00-0.03) X10*3/uL Absolute Neuts (auto) 3.6 (2.0-8.3) x10*3/uL Absolute Nucleated RBC 0.000 (0.0-0.012) X10*3/uL Nucleated RBC % (auto) 0.0 (0.0-0.2) /100WBC Sodium 137 (135-145) mmol/L Potassium 4.2 (3.3-5.1) mmol/L Chloride 101 (96-108) mmol/L Carbon Dioxide 30 H (22-29) mmol/L Anion Gap 10 L (12-20) BUN 12 (9-16) mg/dL Creatinine 0.78 (0.5-1.4) mg/dL Estim Creat Clear Calc 46.3 Estimated GFR > 60 Random Glucose 93 (60-115) mg/dL Calcium 9.5 (8.4-10.2) mg/dL Magnesium 2.0 (1.6-2.6) mg/dL Total Bilirubin 0.7 (0.0-1.0) mg/dL Direct Bilirubin 0.2 (0.0-0.5) mg/dL AST 19 (5-31) U/L ALT 15 (0-31) U/L Alkaline Phosphatase 61 (39-117) U/L Total Protein 6.3 L (6.5-8.0) g/dL Albumin 4.2 (3.5-5.0) g/dL Lipase 15 (8-78) U/L Urine Color Yellow Urine Appearance Clear Urine pH 7.5 (5.0-9.0) Ur Specific [place] <= 1.005 (1.005-1.025) Urine Protein Negative (Neg-Trace) mg/dL Urine Glucose (UA) Negative (Negative) mg/dL Urine Ketones Negative (Negative) mg/dL Urine Blood Negative (Negative) Urine Nitrite Negative (Negative) Ur Leukocyte Esterase Small (1+) H (Negative) Urine RBC 0-2 (0-2) /HPF Urine WBC 0-5 (0-5) /HPF Ur Squamous Epith Cells 0-2 (0-2) /HPF Urine Bacteria None Seen (None Seen) Hyaline Casts 0-2 (0-2) /LPF <TERENCE Nuñez - Last Filed: 09/14/22 18:50> Lab Results 09/14/22 09/14/22 09/14/22 Range/Units 18:43 18:43 19:36 WBC 7.2 (4.8-10.8) X10*3/uL RBC 4.07 L (4.20-5.50) X10*6/uL Hgb 13.2 (12.0-16.0) g/dl Hct 39.1 (37.0-47.0) % MCV 96.1 (80.0-98.0) fL MCH 32.4 (27.0-33.0) pg MCHC 33.8 (31.0-35.0) g/dl RDW 12.1 (11.0-16.0) % Plt Count 287 (160-400) X10*3/uL MPV 8.3 L (9.4-12.3) fL Immature Gran % (Auto) 0.3 (0.0-0.4) % Neut % (Auto) 50.1 (45-73) % Lymph % (Auto) 35.7 (20-40) % Anderson % (Auto) 8.9 (2-11) % Eos % (Auto) 4.4 H (0-4) % Baso % (Auto) 0.6 (0-2) % Lymph # (Auto) 2.6 (1.2-4.9) X10*3/uL Anderson # (Auto) 0.6 (0.1-1.2) X10*3/uL Eos # (Auto) 0.3 (0.0-0.4) X10*3/uL Baso # (Auto) 0.0 (0.0-0.2) X10*3/uL Abs Immat Gran (auto) 0.02 (0.00-0.03) X10*3/uL Absolute Neuts (auto) 3.6 (2.0-8.3) x10*3/uL Absolute Nucleated RBC 0.000 (0.0-0.012) X10*3/uL Nucleated RBC % (auto) 0.0 (0.0-0.2) /100WBC Sodium 137 (135-145) mmol/L Potassium 4.2 (3.3-5.1) mmol/L Chloride 101 (96-108) mmol/L Carbon Dioxide 30 H (22-29) mmol/L Anion Gap 10 L (12-20) BUN 12 (9-16) mg/dL Creatinine 0.78 (0.5-1.4) mg/dL Estim Creat Clear Calc 46.3 Estimated GFR > 60 Random Glucose 93 (60-115) mg/dL Calcium 9.5 (8.4-10.2) mg/dL Magnesium 2.0 (1.6-2.6) mg/dL Total Bilirubin 0.7 (0.0-1.0) mg/dL Direct Bilirubin 0.2 (0.0-0.5) mg/dL AST 19 (5-31) U/L ALT 15 (0-31) U/L Alkaline Phosphatase 61 (39-117) U/L Total Protein 6.3 L (6.5-8.0) g/dL Albumin 4.2 (3.5-5.0) g/dL Lipase 15 (8-78) U/L Urine Color Yellow Urine Appearance Clear Urine pH 7.5 (5.0-9.0) Ur Specific [place] <= 1.005 (1.005-1.025) Urine Protein Negative (Neg-Trace) mg/dL Urine Glucose (UA) Negative (Negative) mg/dL Urine Ketones Negative (Negative) mg/dL Urine Blood Negative (Negative) Urine Nitrite Negative (Negative) Ur Leukocyte Esterase Small (1+) H (Negative) Urine RBC 0-2 (0-2) /HPF Urine WBC 0-5 (0-5) /HPF Ur Squamous Epith Cells 0-2 (0-2) /HPF Urine Bacteria None Seen (None Seen) Hyaline Casts 0-2 (0-2) /LPF <TERENCE Nieves - Last Filed: 09/14/22 22:43> Independent Interpretation I performed an independent interpretation of an: CT Scan <TERENCE Nieves - Last Filed: 09/14/22 22:43> Radiology Impression Discussion of test interpretation with radiology: I have reviewed the radiologist's reading. <TERENCE Nieves - Last Filed: 09/14/22 22:43> Core Measures AMI core measures followed: Yes <TERENCE Nieves - Last Filed: 09/14/22 22:43> Measure exclusions: not indicated <TERENCE Nieves - Last Filed: 09/14/22 22:43> Medications Administered Discontinued Medications Generic Name Dose Route Start Last Admin Trade Name Freq PRN Reason Stop Dose Admin Morphine Sulfate 2 mg 09/14/22 21:04 09/14/22 21:30 Morphine Sulfate 2 Mg/Ml Cartridge IVPUSH 09/14/22 21:05 2 mg ONCE ONE Administration Protocol Ondansetron HCl 4 mg 09/14/22 21:04 09/14/22 21:29 Ondansetron Hcl 4 Mg/2 Ml Vial IVPUSH 09/14/22 21:05 4 mg ONCE ONE Administration <TERENCE Nuñez - Last Filed: 09/14/22 18:50> Medications Administered Discontinued Medications Generic Name Dose Route Start Last Admin Trade Name Ruddy PRN Reason Stop Dose Admin Morphine Sulfate 2 mg 09/14/22 21:04 09/14/22 21:30 Morphine Sulfate 2 Mg/Ml Cartridge IVPUSH 09/14/22 21:05 2 mg ONCE ONE Administration Protocol Ondansetron HCl 4 mg 09/14/22 21:04 09/14/22 21:29 Ondansetron Hcl 4 Mg/2 Ml Vial IVPUSH 09/14/22 21:05 4 mg ONCE ONE Administration <TERENCE Nieves - Last Filed: 09/14/22 22:43> Critical Care Time Critical Care Time Critical Care Time: No <TERENCE Nieves - Last Filed: 09/14/22 22:43> Discharge Plan Discharge Clinical Impression: Left sided abdominal pain, Left flank pain <TERENCE Nuñez - Last Filed: 09/14/22 18:50> Patient Disposition: Home, Self-Care <TERENCE Nuñez - Last Filed: 09/14/22 18:50> Instructions: Abdominal Pain (ED), Flank Pain (ED) <TERENCE Nuñez - Last Filed: 09/14/22 18:50> Additional Instructions: Take your medications as prescribed. If you were prescribed antibiotics today, it is important that you take your medication to their entirety, do not skip any doses, do not finish them early. Follow-up with your primary care provider this week. Follow up with GI within the next week. Return to the emergency department with new or worsening symptoms. In case of emergency call 911 A narcotic has been sent to your pharmacy please take this as prescribed. Do not take more than the prescribed dose. Narcotic medications can cause addiction. Please do not mix them with alcohol. Do not take them while driving or operating machinery. Do not take them with any other narcotics. Do not share them with friends or family. They can cause constipation. Take them only for severe pain. CT/CT abdomen pelvis wo IV con IMPRESSION: 1.? No CT evidence of any acute intra-abdominal and/or intrapelvic pathology is present. 2.? Persistent moderate intrahepatic biliary ductal dilatation and dilated common bile duct seen to the level of the ampulla, appears similar to prior most recent CT of the abdomen and pelvis dated 05/26/2020. 3.? Stable 2 cm left adrenal adenoma, unchanged since 04/21/2015. 4.? Colonic diverticulosis without any CT features of superimposed acute diverticulitis. 5.? Short segment narrowing is present in the distal part of the sigmoid colon, for which direct visualization is recommended, if not recently performed for further clarification. 6.? Moderate diffuse osteopenia and stable hemangioma involving L4 and multilevel degenerative spondylosis. ? Fleischner guidelines were followed. <TERENCE Nuñez - Last Filed: 09/14/22 18:50> Prescriptions: New morphine 15 mg tablet 15 mg PO Q6H PRN (Reason: pain) 5 Days Qty: 10 0RF Rx Instructions: Partial Fill upon patient request. ondansetron 4 mg tablet,disintegrating 4 mg PO Q6H PRN (Reason: nausea and vomiting) Qty: 14 0RF lidocaine 5 % adhesive patch,medicated 1 patch topical DAILY PRN (Reason: pain) Qty: 15 0RF Rx Instructions: leave on most painful area for up to 12 hrs No Action amlodipine 5 mg tablet 1 tab PO DAILY Rx Instructions: BLOOD PRESSURE HAS BEEN LOW hydrocodone-acetaminophen 5-325 mg tablet 1 tab PO Q6H PRN (Reason: pain) Qty: 12 0RF famotidine [Pepcid] 20 mg tablet 20 mg PO DAILY PRN (Reason: abdominal discomfort) Qty: 30 0RF ondansetron 4 mg tablet,disintegrating 4 mg PO Q8H PRN (Reason: nausea and vomiting) Qty: 20 0RF <TERENCE Nuñez - Last Filed: 09/14/22 18:50> Referrals: [facility] [place] [facility] [Provider Group] - 1 week <TERENCE Nuñez - Last Filed: 09/14/22 18:50> Stand Alone Forms: Work/School Release <TERENCE Nuñez - Last Filed: 09/14/22 18:50>
[2022-09-14 18:45] VITALS: BP 167/82; PULSE 82; RESP 18; TEMP 37.2; O2SAT 97; BMI 27.5
[2022-09-14 18:47] LABS: MANUAL DIFF FLAG NO
[2022-09-14 18:49] LABS: Basophils Percent Auto 0.6 % (0-2); Eosinophils Absolute Auto 0.3 X10*3/uL (0.0-0.4); Eosinophils Percent Auto 4.4 % (0-4); Hematocrit 39.1 % (37.0-47.0); Hemoglobin 13.2 g/dl (12.0-16.0); Imm Gran Abs Auto 0.02 X10*3/uL (0.00-0.03); Imm Gran Pct Auto 0.3 % (0.0-0.4); Lymphocytes Absolute Auto 2.6 X10*3/uL (1.2-4.9); Lymphocytes Percent Auto 35.7 % (20-40); Mean Corpuscular HGB Conc 33.8 g/dl (31.0-35.0); Mean Corpuscular Hemoglobin 32.4 pg (27.0-33.0); Mean Corpuscular Volume 96.1 fL (80.0-98.0); Mean Platelet Volume 8.3 fL (9.4-12.3); Monocytes Absolute Auto 0.6 X10*3/uL (0.1-1.2); Monocytes Percent Auto 8.9 % (2-11); Neutrophils Absolute Auto 3.6 x10*3/uL (2.0-8.3); Neutrophils Percent Auto 50.1 % (45-73); Platelet Count 287 X10*3/uL (160-400); Red Blood Count 4.07 X10*6/uL (4.20-5.50); Red Cell Distribution Width 12.1 % (11.0-16.0); White Blood Count 7.2 X10*3/uL (4.8-10.8)
[2022-09-14 19:25] LABS: Alanine Aminotransferase 15 U/L (0-31); Albumin Level 4.2 g/dL (3.5-5.0); Alkaline Phosphatase 61 U/L (39-117); Anion Gap 10 (12-20); Aspartate Amino Transferase 19 U/L (5-31); Bilirubin Direct 0.2 mg/dL (0.0-0.5); Bilirubin Total 0.7 mg/dL (0.0-1.0); Blood Urea Nitrogen 12 mg/dL (9-16); Calcium 9.5 mg/dL (8.4-10.2); Carbon Dioxide 30 mmol/L (22-29); Chloride 101 mmol/L (96-108); Creatinine Clr Calc Pharmacy 46.3; Estimated Glomerular Filt Rate > 60; Glucose Random 93 mg/dL (60-115); Lipase 15 U/L (8-78); Potassium 4.2 mmol/L (3.3-5.1); Sodium 137 mmol/L (135-145); Total Protein 6.3 g/dL (6.5-8.0)
[2022-09-14 20:12] LABS: Appearance Urine Clear; Color Urine Yellow; Glucose Urine UA Negative (Negative); Leukocyte Esterase Urine Small (1+) (Negative); Nitrite Urine Negative (Negative); PH 7.5 (5.0-9.0); Specific Gravity - Urine <= 1.005 (1.005-1.025); UMIC TRIGGER UACC YES; Urine Blood Negative (Negative); Urine Ketones Negative (Negative); Urine Protein Negative (Neg-Trace)
[2022-09-14 20:21] VITALS: BP 152/67; PULSE 63; RESP 18; TEMP 36.6; O2SAT 96
[2022-09-14 20:25] LABS: Bacteria Urine None Seen (None Seen); Hyaline Casts Urine 0-2 /LPF (0-2); RBC Urine 0-2 /HPF (0-2); Squamous Epithelial Cell Urine 0-2 /HPF (0-2); UACC Culture Trigger YES; WBC Urine 0-5 /HPF (0-5)
[2022-09-14] MEDS: ondansetron HCL 4 MG/2 ML VIAL IVPUSH (21:29)
[2022-09-14] MEDS: Morphine Sulfate 2 MG/ML CARTRIDGE IVPUSH (21:30)
--- NOTE | 2022-09-14 21:36 | PC.NURSE ---
this rn assumed care of pt from waiting room. pt calm and cooperative. pt changed into hospital gown. this rn placed 20g IV in R AC. pt tolerated well. pt medicated according to mar. pt remains at bedside. pt awaiting to go to CT
[2022-09-14 22:01] VITALS: BP 129/68; PULSE 64; RESP 16; TEMP 36.6; O2SAT 92
[2022-09-14] MEDS: Lidocaine 4 % Patch ADH..PATCH 1 PATCH TRANSDERMA (23:09)
--- NOTE | 2022-09-14 23:11 | PC.NURSE ---
pt discharge paper in by provider ren mcdonald. this rn attempted to discharge and medicate pt. pt reports nausea and vomiting at this time. pt vomiting bile at this time. this rn made ren mcdonald aware of nausea and vomiting. this rn awaiting additional orders prior to discharge
[2022-09-14] MEDS: Ondansetron ODT 4 MG TAB.RAPDIS TRANSLINGU (23:20)
[2022-09-14 23:21] VITALS: BP 129/68; PULSE 65; RESP 16
== END 2022-09-14 23:22 | disposition home or self-care (01) ==
PROVIDERS: Physician Assistant; Emergency Provider Emergency Medicine
DX: R10.32 Left lower quadrant pain (principal); R10.9 Unspecified abdominal pain; R11.0 Nausea; M54.50 Low back pain, unspecified; I10 Essential (primary) hypertension; Z79.899 Other long term (current) drug therapy
CPT/HCPCS: 36415; 74176; 80048; 80076; 81001; 83690; 83735; 85025; 87086; 96374; 96375; 99284; J2270; J2405

== ENCOUNTER 2023-07-29 11:27 | Emergency (ER) | payer MEDICARE, SELFPAY ==
--- NOTE | ~2023-07-29 | CT_ITS ---
EXAMINATION: CT ABDOMEN AND PELVIS WITH CONTRAST CLINICAL INFORMATION: Abdominal pain. Mass versus partial bowel obstruction. COMPARISON: Multiple previous studies with the last abdomen and pelvic CT scan of 09/14/2022 TECHNIQUE: Multidetector volumetric images were obtained from the superior aspect of the liver through the pubic symphysis following administration 85 mL of Omnipaque 350 intravenous contrast. Sagittal and coronal reformatted images were obtained on the technologist's workstation. Oral contrast: Yes This CT examination was performed using dose optimization techniques as appropriate, variously including the following: *Automated exposure control *Adjustment of mA and/or kV according to patient size (this includes techniques or standardized protocols for targeted exams where dose is matched to indication/reason for exam; i.e. extremities or head) *Use of iterative reconstruction technique DLP: 549 mGy-cm FINDINGS: LUNG BASES: Mild bronchiectasis at the lung bases. Lung bases are otherwise unremarkable. No pleural or pericardial effusion. LIVER, GALLBLADDER, AND BILIARY TREE: The gallbladder is surgically absent. There is intrahepatic and extrahepatic biliary ductal dilatation which does not appear to be significantly changed compared to previous contrast enhanced CT scan of 05/26/2020. The common bile duct measures 1.4 cm in maximum diameter. No radiopaque filling defects are noted in the common bile duct. Subcapsular hypodense lesions in the hepatic segment 8 (series 4 image 98) and in the hepatic segment 7 (series 4 image 117, measuring up to 1.4 cm in maximum dimensions. These hepatic lesions are not significantly changed compared to multiple previous studies including abdominal MRI of 05/06/[address] scan of 04/21/2015. No new liver lesions are seen. PANCREAS: Stable in appearance without evidence of focal pancreatic mass. Mild pancreatic ductal dilatation, greater in the pancreatic head measuring 0.5 cm is a stable finding compared to several previous studies. No evidence of peripancreatic stranding or fluid. SPLEEN: Unremarkable. ADRENAL GLANDS: Normal right adrenal gland. A 2.4 cm left adrenal nodule is not significantly changed since the previous CT scan of 2014 and has proven to represent an adrenal adenoma on previous noncontrast CT scans. No further imaging follow-up of this finding is warranted. KIDNEYS AND URETERS: The kidneys are normal in size, shape, and attenuation. No hydronephrosis, hydroureter, or calculi seen. No perinephric stranding. Bilateral mild prominent extrarenal pelvises are noted. There is mild dilatation of the entire right ureter. No left hydroureter. BLADDER: Underdistended and therefore not optimally evaluated. No radiopaque bladder calculi are seen. GASTROINTESTINAL TRACT: The stomach is distended with oral contrast. Oral contrast is noted in the multiple small bowel loops including terminal ileum. Oral contrast is noted in the cecum and proximal ascending colon. No abnormal small bowel dilatation is seen. The colon is normal in caliber. No evidence of colonic wall thickening or pericolonic fat stranding. Extensive diverticulosis of the sigmoid colon and mild diverticulosis of the remainder of the colon without evidence of acute diverticulitis. An appendix is not clearly identified however there are no inflammatory changes in the expected location of the appendix. Cecal diverticula are noted. ABDOMINAL WALL: Small fat-containing umbilical hernia is noted. Anterior abdominal wall midline supraumbilical hernia, approximately 2.5 cm cranial to the umbilicus is noted measuring 2 cm in length. Small right inguinal hernia containing fat. LYMPH NODES: No evidence of pathologically enlarged lymph nodes. VASCULAR: The aortoiliac vessels are normal in caliber. Scattered calcific atherosclerosis of the aortoiliac vessels. PELVIC VISCERA: The uterus is not seen, likely surgically absent. No adnexal mass. Multiple phleboliths are noted in the pelvis. OSSEOUS STRUCTURES: No acute or suspicious osseous lesions. Grade 1 anterolisthesis of L4 over L5 is stable. Severe disc space narrowing at L2-L3 and at T11-T12 with sclerotic endplate marrow changes and erosive changes are again noted. Moderate to severe facet arthropathy in the mid and lower lumbar spine. CT/CT abdomen pelvis w IV con IMPRESSION: 1. No evidence of abnormal bowel dilatation or bowel obstruction. No evidence of acute inflammatory changes in the abdomen and pelvis. 2. Colonic diverticulosis without acute diverticulitis. 3. Mild dilatation of the entire right ureter without evidence of radiopaque urinary tract calculi. Recommend clinical correlation and correlation with lab values/urinalysis. 4. Stable left adrenal adenoma for which no further imaging follow-up is warranted. 5. Stable intrahepatic and extrahepatic biliary ductal dilatation and mild pancreatic ductal dilatation. 6. Stable hepatic lesions, not significantly changed compared to multiple previous studies including abdominal MRI of 05/06/[address] scan of 04/21/2015. Fleischner guidelines were followed.
[2023-07-29 11:38] VITALS: BP 139/83; PULSE 60; RESP 17; TEMP 36.2; O2SAT 98; BMI 28.3
--- NOTE | 2023-07-29 11:39 | ED_ITS ---
HPI - General Adult General Chief complaint: Abdominal Pain Stated complaint: abd pain swelling Time Seen by Provider: 07/29/23 12:18 Source: patient and family Mode of arrival: ambulatory History of Present Illness HPI narrative: 83-year-old female who presents with 2 weeks of intermittent sharp abdominal discomfort that appears to be primarily on the left side and patient denies any fevers but reports chills as well as nausea patient is status post appendectomy/cholecystectomy and has a history of having left oophorectomy. She denies any dysuria. Related Data Home Medications Medication Instructions Recorded Confirmed amlodipine 5 mg tablet 1 tab PO DAILY 05/26/20 05/26/20 Previous Rx's Medication Instructions Recorded famotidine 20 mg tablet (Pepcid) 20 mg PO DAILY PRN abdominal 05/26/20 discomfort #30 tabs hydrocodone 5 mg-acetaminophen 325 1 tab PO Q6H PRN pain #12 tabs 05/26/20 mg tablet ondansetron 4 mg disintegrating 4 mg PO Q8H PRN nausea and 05/26/20 tablet vomiting #20 tabs lidocaine 5 % topical patch 1 patch topical DAILY PRN pain #15 09/14/22 ea morphine 15 mg immediate release 15 mg PO Q6H PRN pain 5 days #10 09/14/22 tablet tabs ondansetron 4 mg disintegrating 4 mg PO Q6H PRN nausea and 09/14/22 tablet vomiting #14 tabs cephalexin 500 mg capsule 500 mg PO BID 5 days #10 caps 07/29/23 Allergies Allergy/AdvReac Type Severity Reaction Status Date / Time Sulfa (Sulfonamide Allergy Mild RASH Verified 05/26/20 11:20 Antibiotics) [SULFA (SULFONAMIDE ANTIBIOTICS)] Review of Systems 2 Review of Systems: Pertinent positives and negatives as stated in HPI [facility] Past Medical History Source: nursing notes reviewed Medical History UTI (urinary tract infection) Back pain Chronic headaches Breast cancer Surgical History History of hysterectomy Hx of cholecystectomy Social History Social History Alcohol intake: never Advance Directives: No Advance Directives Information Provided: No Physical Exam ED Vital Signs: Vital Signs - 24 hr 07/29/23 11:38 07/29/23 13:48 07/29/23 16:17 Temperature 97.2 F 97.5 F 98.0 F Pulse Rate 60 57 59 Respiratory Rate 17 16 16 Blood Pressure 139/83 169/57 H 171/72 H Pulse Oximetry 98 94 94 Oxygen Delivery Method Nasal Cannula Room Air Room Air BMI result Body Mass Index 28.3 VITAL SIGNS: Reviewed. GENERAL: Well developed, well nourished, in no acute distress. HEAD: Normocephalic/atraumatic EYES: PERRLA, EOMI EARS: Ext canals without abnormality NOSE: Nares patent bilateral OROPHARYNX: no oral lesions noted, posterior pharynx clear NECK: Supple, no adenopathy LUNGS: Normal breath sounds. No adventitious sounds or accessory muscle use. SpO2<98> CARDIOVASCULAR: Regular rate and rhythm without noted murmurs ABDOMEN: Soft, tenderness to deep palpation without rebound, no palpable masses, non-distended with bowel sounds. MUSCULOSKELETAL: No tenderness, deformities, or effusions noted on gross inspection. EXTREMITIES: No cyanosis, clubbing or edema. SKIN: Inspection of the skin reveals no rashes NEUROLOGIC: Alert and oriented x 4. Strength and sensation to light touch were grossly intact x 4. Course Course Course Narrative: This is an RME: Additional HPI, ROS, PE not included below will be deferred to primary provider. 83 year old female hx of breast cancer s/p lymph node removal, htn, presents w/ epigastric/ RUQ pain X 1 week worsening. Decreased po intake due to pain. Reports pain is under right rib and into the back now 5/10 but it fluctuates to 10/10. Denies n/v/d, cp, sob, fevers, chills. Patient has hx of cholecysectomy years ago. Plan- labs Medications Administered Discontinued Medications Generic Name Dose Route Start Last Admin Trade Name Freq PRN Reason Stop Dose Admin Diatrizoate Meglum/Diatrizoate Sod 30 ml 07/29/23 15:52 07/29/23 15:52 Diatrizoate Meglumine, Sodium 30 Ml Solution PO 07/29/23 15:53 30 ml ONCE ONE Administration Iohexol 100 ml 07/29/23 15:51 07/29/23 15:51 Iohexol 350 Mg/Ml 100 Ml Infus..Btl IV 07/29/23 15:52 85 ml ONCE ONE Administration Medical Decision Making Medical Decision Making [facility] Narrative: 83-year-old female with history and clinical presentation, DDX: UTI, Intermittent SBO, diverticulitis, mass, UTI I reviewed all investigations and hematologic indices are negative for leukocytosis/left shift/anemia/thrombocytopenia. Chemistry indices negative for KEISHA or electrolyte/liver enzyme derangements. Urinalysis positive for leukocyte esterase and wbc's, patient will be treated for UTI and CT scan negative for evidence to suggest bowel obstruction or mass. Interpretation is patient has been experiencing intermittent abdominal discomfort with associated nausea secondary to underlying urinary tract infection. She is otherwise discharged home on remaining course of antibiotics after receiving initial dose here. Differential Diagnosis Differential Diagnoses: The differential diagnosis associated with the presentation includes Please see the discussion above Admission/Observation Consideration of admission/observation: Escalation of care including admission/observation considered Please see the discussion above Lab Data [facility] Lab Attestation statement: I reviewed the patient's lab results. Please see the discussion above 07/29/23 12:03 07/29/23 12:03 Labs: Lab Results 07/29/23 07/29/23 Range/Units 12:00 12:03 WBC 6.9 (4.8-10.8) X10*3/uL RBC 3.93 L (4.20-5.50) X10*6/uL Hgb 12.8 (12.0-16.0) g/dl Hct 37.2 (37.0-47.0) % MCV 94.7 (80.0-98.0) fL MCH 32.6 (27.0-33.0) pg MCHC 34.4 (31.0-35.0) g/dl RDW 11.9 (11.0-16.0) % Plt Count 246 (160-400) X10*3/uL MPV 8.4 L (9.4-12.3) fL Immature Gran % (Auto) 0.1 (0.0-0.4) % Neut % (Auto) 57.7 (45-73) % Lymph % (Auto) 28.8 (20-40) % [place] % (Auto) 7.7 (2-11) % Eos % (Auto) 4.8 H (0-4) % Baso % (Auto) 0.9 (0-2) % Lymph # (Auto) 2.0 (1.2-4.9) X10*3/uL [place] # (Auto) 0.5 (0.1-1.2) X10*3/uL Eos # (Auto) 0.3 (0.0-0.4) X10*3/uL Baso # (Auto) 0.1 (0.0-0.2) X10*3/uL Abs Immat Gran (auto) 0.01 (0.00-0.03) X10*3/uL Absolute Neuts (auto) 4.0 (2.0-8.3) x10*3/uL Absolute Nucleated RBC 0.000 (0.0-0.012) X10*3/uL Nucleated RBC % (auto) 0.0 (0.0-0.2) /100WBC Sodium 133 L (135-145) mmol/L Potassium 4.6 (3.3-5.1) mmol/L Chloride 98 (96-108) mmol/L Carbon Dioxide 29 (22-29) mmol/L Anion Gap 11 L (12-20) BUN 14 (9-16) mg/dL Creatinine 0.86 (0.5-1.4) mg/dL Estim Creat Clear Calc 40.1 Estimated GFR > 60 Random Glucose 87 (60-115) mg/dL Calcium 9.8 (8.4-10.2) mg/dL Magnesium 2.4 (1.6-2.6) mg/dL Total Bilirubin 0.5 (0.0-1.0) mg/dL AST 22 (5-31) U/L ALT 16 (0-31) U/L Alkaline Phosphatase 51 (39-117) U/L Total Protein 5.9 L (6.5-8.0) g/dL Albumin 3.9 (3.5-5.0) g/dL Lipase 14 (8-78) U/L Urine Color Yellow Urine Appearance Cloudy Urine pH 7.0 (5.0-9.0) Ur Specific [place] 1.020 (1.005-1.025) Urine Protein Negative (Neg-Trace) mg/dL Urine Glucose (UA) Negative (Negative) mg/dL Urine Ketones Negative (Negative) mg/dL Urine Blood Negative (Negative) Urine Nitrite Negative (Negative) Ur Leukocyte Esterase Moderate (2+) H (Negative) Urine RBC 0-2 (0-2) /HPF Urine WBC 6-10 H (0-5) /HPF Ur Squamous Epith Cells 3-5 (0-2) /HPF Urine Bacteria None Seen (None Seen) Hyaline Casts 3-5 (0-2) /LPF Radiology Impression Discussion of test interpretation with radiology: I have reviewed the radiologist's reading. Radiologist Impression: Please see the discussion above External Record Review External record reviewed: Outpatient record and Prior outpatient labs Critical Care Time Critical Care Time Critical Care Time: Yes Total Critical Care Time: 30 Attestation: I personally attest to this time spent taking care of the patient. Discharge Plan Discharge Clinical Impression: Acute UTI Patient Disposition: Home, Self-Care Instructions: Urinary Tract Infection in Women (ED) Additional Instructions: 1. Resume all home medications as prescribed. 2. Complete the entire course of antibiotics as prescribed. 3. Follow-up with your primary care doctor. Return to the ER for any worsening symptoms. Prescriptions: New cephalexin 500 mg capsule 500 mg PO BID 5 Days Qty: 10 0RF No Action amlodipine 5 mg tablet 1 tab PO DAILY Rx Instructions: BLOOD PRESSURE HAS BEEN LOW hydrocodone-acetaminophen 5-325 mg tablet 1 tab PO Q6H PRN (Reason: pain) Qty: 12 0RF famotidine [Pepcid] 20 mg tablet 20 mg PO DAILY PRN (Reason: abdominal discomfort) Qty: 30 0RF ondansetron 4 mg tablet,disintegrating 4 mg PO Q8H PRN (Reason: nausea and vomiting) Qty: 20 0RF morphine 15 mg tablet 15 mg PO Q6H PRN (Reason: pain) 5 Days Qty: 10 0RF Rx Instructions: Partial Fill upon patient request. ondansetron 4 mg tablet,disintegrating 4 mg PO Q6H PRN (Reason: nausea and vomiting) Qty: 14 0RF lidocaine 5 % adhesive patch,medicated 1 patch topical DAILY PRN (Reason: pain) Qty: 15 0RF Rx Instructions: leave on most painful area for up to 12 hrs
[2023-07-29 12:07] LABS: MANUAL DIFF FLAG NO
[2023-07-29 12:08] LABS: Basophils Absolute Auto 0.1 X10*3/uL (0.0-0.2); Basophils Percent Auto 0.9 % (0-2); Eosinophils Absolute Auto 0.3 X10*3/uL (0.0-0.4); Eosinophils Percent Auto 4.8 % (0-4); Hematocrit 37.2 % (37.0-47.0); Hemoglobin 12.8 g/dl (12.0-16.0); Imm Gran Abs Auto 0.01 X10*3/uL (0.00-0.03); Imm Gran Pct Auto 0.1 % (0.0-0.4); Lymphocytes Percent Auto 28.8 % (20-40); Mean Corpuscular HGB Conc 34.4 g/dl (31.0-35.0); Mean Corpuscular Hemoglobin 32.6 pg (27.0-33.0); Mean Corpuscular Volume 94.7 fL (80.0-98.0); Mean Platelet Volume 8.4 fL (9.4-12.3); Monocytes Absolute Auto 0.5 X10*3/uL (0.1-1.2); Monocytes Percent Auto 7.7 % (2-11); Neutrophils Percent Auto 57.7 % (45-73); Platelet Count 246 X10*3/uL (160-400); Red Blood Count 3.93 X10*6/uL (4.20-5.50); Red Cell Distribution Width 11.9 % (11.0-16.0); White Blood Count 6.9 X10*3/uL (4.8-10.8)
[2023-07-29 12:10] LABS: Appearance Urine Cloudy; Color Urine Yellow; Glucose Urine UA Negative (Negative); Leukocyte Esterase Urine Moderate (2+) (Negative); Nitrite Urine Negative (Negative); UMIC TRIGGER UACC YES; Urine Blood Negative (Negative); Urine Ketones Negative (Negative); Urine Protein Negative (Neg-Trace)
[2023-07-29 12:12] LABS: Bacteria Urine None Seen (None Seen); RBC Urine 0-2 /HPF (0-2); UACC Culture Trigger YES
[2023-07-29 12:32] LABS: Alanine Aminotransferase 16 U/L (0-31); Albumin Level 3.9 g/dL (3.5-5.0); Alkaline Phosphatase 51 U/L (39-117); Anion Gap 11 (12-20); Aspartate Amino Transferase 22 U/L (5-31); Bilirubin Total 0.5 mg/dL (0.0-1.0); Blood Urea Nitrogen 14 mg/dL (9-16); Calcium 9.8 mg/dL (8.4-10.2); Carbon Dioxide 29 mmol/L (22-29); Chloride 98 mmol/L (96-108); Creatinine Clr Calc Pharmacy 40.1; Estimated Glomerular Filt Rate > 60; Glucose Random 87 mg/dL (60-115); Lipase 14 U/L (8-78); Magnesium 2.4 mg/dL (1.6-2.6); Potassium 4.6 mmol/L (3.3-5.1); Sodium 133 mmol/L (135-145); Total Protein 5.9 g/dL (6.5-8.0)
[2023-07-29 13:48] VITALS: BP 169/57; PULSE 57; RESP 16; TEMP 36.4; O2SAT 94
[2023-07-29] MEDS: iohexoL 350 MG/ML 100 ML INFUS..BTL IV (15:51)
[2023-07-29] MEDS: Diatrizoate Meglumine, Sodium 30 ML SOLUTION PO (15:52)
[2023-07-29 16:17] VITALS: BP 171/72; PULSE 59; RESP 16; TEMP 36.7; O2SAT 94
--- NOTE | 2023-07-29 16:18 | PC.NURSE ---
remains alert and oriented, no signs/symptoms of distress noted. awaiting CT scan results at this time, call soto within reach
[2023-07-29 17:17] VITALS: BP 147/85; PULSE 79; RESP 18; TEMP 36.8; O2SAT 93
[2023-07-29] MEDS: cephALEXin 500 MG CAPSULE PO (17:23)
[2023-07-29 17:33] VITALS: BP 147/85; PULSE 79; RESP 18; TEMP 36.8; O2SAT 94
== END 2023-07-29 17:33 | disposition home or self-care (01) ==
PROVIDERS: Physician Assistant; Emergency Provider Student in an Organized Health Care Education/Training Program
DX: N39.0 Urinary tract infection, site not specified (principal); Z90.49 Acquired absence of other specified parts of digestive tract; Z90.721 Acquired absence of ovaries, unilateral
CPT/HCPCS: 36415; 74177; 80053; 81001; 83690; 83735; 85025; 87086; 99284; Q9967

== ENCOUNTER 2023-08-01 12:48 | Emergency (ER) | payer MEDICARE, SELFPAY ==
[2023-08-01 13:07] VITALS: BP 164/90; PULSE 99; RESP 17; TEMP 36.8; O2SAT 95; BMI 27.6
--- NOTE | 2023-08-01 13:07 | ED_ITS ---
HPI - Back Pain/Injury General Chief Complaint: Abdominal Pain Stated Complaint: Back Pain No Injury Time Seen by Provider: 08/01/23 17:54 Source: patient Mode of arrival: ambulatory Limitations: no limitations History of Present Illness HPI Narrative: Patient is an 83-year-old female who presents emergency department for evaluation of right-sided back pain and reported muscle spasming. Reports onset of her symptoms to be 3 weeks ago with progressive worsening. Reports that she was here over the weekend and had a CT scan, which by her account was negative but she was diagnosed with a urinary tract infection and states she has been taking her antibiotics as prescribed. Family expressing concern that she is not eating due to appetite, not sleeping due to pain. She reports that approximately 2 months ago she had weaned herself off of duloxetine which she was previously taking for pain management with good effect. She wanted to come off the medication as she was feeling quite forgetful and did not like the side effects from the medication. Denies nausea, vomiting, diarrhea, constipation, fevers, URI symptoms, chest pain, shortness of breath. Related Data Home Medications Medication Instructions Recorded Confirmed amlodipine 5 mg tablet 1 tab PO DAILY 05/26/20 05/26/20 Previous Rx's Medication Instructions Recorded famotidine 20 mg tablet (Pepcid) 20 mg PO DAILY PRN abdominal 05/26/20 discomfort #30 tabs hydrocodone 5 mg-acetaminophen 325 1 tab PO Q6H PRN pain #12 tabs 05/26/20 mg tablet ondansetron 4 mg disintegrating 4 mg PO Q8H PRN nausea and 05/26/20 tablet vomiting #20 tabs lidocaine 5 % topical patch 1 patch topical DAILY PRN pain #15 09/14/22 ea morphine 15 mg immediate release 15 mg PO Q6H PRN pain 5 days #10 09/14/22 tablet tabs ondansetron 4 mg disintegrating 4 mg PO Q6H PRN nausea and 09/14/22 tablet vomiting #14 tabs cephalexin 500 mg capsule 500 mg PO BID 5 days #10 caps 07/29/23 gabapentin 300 mg capsule 300 mg PO BID PRN pain #10 caps 08/01/23 Allergies Allergy/AdvReac Type Severity Reaction Status Date / Time Sulfa (Sulfonamide Allergy Mild RASH Verified 05/26/20 11:20 Antibiotics) [SULFA (SULFONAMIDE ANTIBIOTICS)] Review of Systems 2 Review of Systems: Yes all other systems are reviewed and are negative [facility] Past Medical History Attestation statement: The following information was validated with the patient. Source: old records reviewed Medical History UTI (urinary tract infection) Back pain Chronic headaches Breast cancer Surgical History History of hysterectomy Hx of cholecystectomy Social History Social History Alcohol intake: never Advance Directives: No Advance Directives Information Provided: No Physical Exam 2 Vital Signs: Vital Signs: Last Vital Signs Temp 97.5 F 08/01/23 18:00 Pulse 63 08/01/23 18:00 Resp 17 08/01/23 18:00 BP 159/66 H 08/01/23 18:00 Pulse Ox 95 08/01/23 18:00 O2 Del Method Room Air 08/01/23 18:00 BMI result Body Mass Index 27.6 Appearance: Alert.?Oriented to person, place and time. No acute distress.?Normal affect. Eyes: Pupils equal, round and reactive to light.? ENT: Pharynx normal.?? Neck: Normal inspection.? Neck supple.?? CVS: Heart sounds normal. Normal heart rate and rhythm.? Pulses normal.?? Respiratory: No respiratory distress.? Lung sounds clear to auscultation bilaterally?? Abdomen: Soft and non-tender. Normoactive bowel sounds. Back: Midline spinous tenderness upon palpation, no palpable step-offs or deformities Skin: Skin warm and dry.? Normal skin color.? Extremities: No lower extremity edema.? Neuro: Moves all extremities spontaneously. Sensation intact bilaterally. No focal neuro deficits. Ambulates with normal steady gait. Course Course Course Narrative: This is a Rapid Medical Examination (RME) in triage, full HPI, ROS, assessment and plan per primary provider in the Main ED. 83 yo female with history of recently diagnosed UTI, s/p cholecystectomy in the past who presents to the ER for evaluation of worsening right sided back pain and spasm. Her symptoms have been going on for 3 weeks and worsening. No N/V/D, fevers, chest pain. Family reports she can't eat and can't sleep and that something else is wrong. Do not want to take her home until they know more. Exam is c/w midline tenderness of the spine. CT w/ severe DJD, sclerotic changes. She follows w/ the insurance marketing specialist here and has 2 MRI's scheduled for next week. Plan: labs and UA. ?PT/CM Medications Administered Discontinued Medications Generic Name Dose Route Start Last Admin Trade Name Ruddy PRN Reason Stop Dose Admin Gabapentin 300 mg 08/01/23 18:22 08/01/23 19:03 Gabapentin 300 Mg Capsule PO 08/01/23 18:23 300 mg ONCE ONE Administration Sodium Polystyrene Sulfonate 30 gm 08/01/23 18:41 08/01/23 19:03 Sodium Polystyrene Sulfon/Sorb 15 Gm/60 Ml Oral.Susp PO 08/01/23 18:42 30 gm ONCE ONE Administration Medical Decision Making Medical Decision Making [facility] Narrative: Patient is an 83-year-old female past medical history recent diagnosed urinary tract infection, breast cancer, prior hysterectomy, prior cholecystectomy presenting to emergency department for evaluation of persistent right back/abdominal pain with poor p.o. intake at home, and insomnia. Evaluated here 07/29/2023 urinalysis revealing 2+ leukocyte esterase and urine WBCs,discharged home with cephalexin b.i.d. for 5 days, urine culture <10,000 cfu/mL. Repeat urinalysis today reveals 1+ leukocyte esterase, otherwise unremarkable, no urine bacteria. CT of the abdomen and pelvis reveals no acute gastrointestinal etiology, there is mild dilation of the entire right ureter without evidence of radiopaque calculi, severe degenerative disc disease and sclerotic changes, reportedly has been referred to see the spinal specialist here at [facility], PCP has ordered an MRI scheduled for 08/25/2023. Will trial gabapentin for pain management at this time as she has previous success with duloxetine for management of neuropathic pain. We did discuss potential side effects, and she verbalized understanding. Differential Diagnosis Differential Diagnoses: The differential diagnosis associated with the presentation includes (DJD, muscular strain, neuropathic pain, UTI, pyelonephritis) Admission/Observation Consideration of admission/observation: Escalation of care including admission/observation considered (See narrative above in course narrative for further detail) Lab Data [facility] Lab Attestation statement: I reviewed the patient's lab results. Leukocytosis, no anemia, thrombocytopenia or thrombocytosis. Mild hyperkalemia 5.3, otherwise no electrolyte abnormality. No overt KEISHA though does have slightly increased creatinine when compared to prior level from 07/29/2023; today 1.07, previously 0.86. Transaminases within normal range. Urinalysis as per narrative above. 08/01/23 13:33 08/01/23 13:33 Labs: Lab Results 08/01/23 08/01/23 Range/Units 13:33 16:09 WBC 7.1 (4.8-10.8) X10*3/uL RBC 4.29 (4.20-5.50) X10*6/uL Hgb 14.0 (12.0-16.0) g/dl Hct 41.8 (37.0-47.0) % MCV 97.4 (80.0-98.0) fL MCH 32.6 (27.0-33.0) pg MCHC 33.5 (31.0-35.0) g/dl RDW 12.0 (11.0-16.0) % Plt Count 199 (160-400) X10*3/uL MPV 9.7 (9.4-12.3) fL Immature Gran % (Auto) 0.1 (0.0-0.4) % Neut % (Auto) 65.8 (45-73) % Lymph % (Auto) 24.0 (20-40) % [place] % (Auto) 5.8 (2-11) % Eos % (Auto) 3.7 (0-4) % Baso % (Auto) 0.6 (0-2) % Lymph # (Auto) 1.7 (1.2-4.9) X10*3/uL [place] # (Auto) 0.4 (0.1-1.2) X10*3/uL Eos # (Auto) 0.3 (0.0-0.4) X10*3/uL Baso # (Auto) 0.0 (0.0-0.2) X10*3/uL Abs Immat Gran (auto) 0.01 (0.00-0.03) X10*3/uL Absolute Neuts (auto) 4.7 (2.0-8.3) x10*3/uL Absolute Nucleated RBC 0.000 (0.0-0.012) X10*3/uL Nucleated RBC % (auto) 0.0 (0.0-0.2) /100WBC Sodium 140 (135-145) mmol/L Potassium 5.3 H (3.3-5.1) mmol/L Chloride 103 (96-108) mmol/L Carbon Dioxide 29 (22-29) mmol/L Anion Gap 13 (12-20) BUN 14 (9-16) mg/dL Creatinine 1.07 (0.5-1.4) mg/dL Estim Creat Clear Calc 31.9 Estimated GFR 49 Random Glucose 167 H (60-115) mg/dL Calcium 10.0 (8.4-10.2) mg/dL Magnesium 2.1 (1.6-2.6) mg/dL Total Bilirubin 0.4 (0.0-1.0) mg/dL Direct Bilirubin 0.1 (0.0-0.5) mg/dL AST 23 (5-31) U/L ALT 17 (0-31) U/L Alkaline Phosphatase 63 (39-117) U/L Total Protein 6.8 (6.5-8.0) g/dL Albumin 4.2 (3.5-5.0) g/dL Urine Color Yellow Urine Appearance Clear Urine pH 7.5 (5.0-9.0) Ur Specific [place] 1.010 (1.005-1.025) Urine Protein Negative (Neg-Trace) mg/dL Urine Glucose (UA) Negative (Negative) mg/dL Urine Ketones Negative (Negative) mg/dL Urine Blood Negative (Negative) Urine Nitrite Negative (Negative) Ur Leukocyte Esterase Small (1+) H (Negative) Urine RBC 0-2 (0-2) /HPF Urine WBC 0-5 (0-5) /HPF Ur Squamous Epith Cells 0-2 (0-2) /HPF Urine Bacteria None Seen (None Seen) Hyaline Casts 0-2 (0-2) /LPF Independent Interpretation I performed an independent interpretation of an: EKG Interpretation: Rate: 63 Rhythm:? Normal sinus rhythm [place]:? Normal Normal P waves.? Normal CECILIO.?? Normal QRS complex.?? ST T wave :??No ST segment changes. No T-wave abnormalities qTC:425 The study has been interpreted contemporaneously by me. Independent Historian Clinical information obtained from an independent historian. History obtained from or confirmed by: Spouse (Present who confirms history) Prescription Management I considered prescription management with: Pain Medication Discharge Plan Discharge Clinical Impression: Back pain Patient Disposition: Home, Self-Care Instructions: Chronic Back Pain (DC) Additional Instructions: As discussed please follow-up closely with your primary care provider. A prescription for gabapentin was sent to the pharmacy, take this as prescribed as needed for pain. Return back to emergency department with any new or worsening symptoms or concerns. Prescriptions: New gabapentin 300 mg capsule 300 mg PO BID PRN (Reason: pain) Qty: 10 0RF No Action amlodipine 5 mg tablet 1 tab PO DAILY Rx Instructions: BLOOD PRESSURE HAS BEEN LOW hydrocodone-acetaminophen 5-325 mg tablet 1 tab PO Q6H PRN (Reason: pain) Qty: 12 0RF famotidine [Pepcid] 20 mg tablet 20 mg PO DAILY PRN (Reason: abdominal discomfort) Qty: 30 0RF ondansetron 4 mg tablet,disintegrating 4 mg PO Q8H PRN (Reason: nausea and vomiting) Qty: 20 0RF morphine 15 mg tablet 15 mg PO Q6H PRN (Reason: pain) 5 Days Qty: 10 0RF Rx Instructions: Partial Fill upon patient request. ondansetron 4 mg tablet,disintegrating 4 mg PO Q6H PRN (Reason: nausea and vomiting) Qty: 14 0RF lidocaine 5 % adhesive patch,medicated 1 patch topical DAILY PRN (Reason: pain) Qty: 15 0RF Rx Instructions: leave on most painful area for up to 12 hrs cephalexin 500 mg capsule 500 mg PO BID 5 Days Qty: 10 0RF Referrals: Moisés Carrera DO [Primary Care Provider] -
[2023-08-01 13:41] LABS: Basophils Percent Auto 0.6 % (0-2); Eosinophils Absolute Auto 0.3 X10*3/uL (0.0-0.4); Eosinophils Percent Auto 3.7 % (0-4); Hematocrit 41.8 % (37.0-47.0); Imm Gran Abs Auto 0.01 X10*3/uL (0.00-0.03); Imm Gran Pct Auto 0.1 % (0.0-0.4); Lymphocytes Absolute Auto 1.7 X10*3/uL (1.2-4.9); Mean Corpuscular HGB Conc 33.5 g/dl (31.0-35.0); Mean Corpuscular Hemoglobin 32.6 pg (27.0-33.0); Mean Corpuscular Volume 97.4 fL (80.0-98.0); Mean Platelet Volume 9.7 fL (9.4-12.3); Monocytes Absolute Auto 0.4 X10*3/uL (0.1-1.2); Monocytes Percent Auto 5.8 % (2-11); Neutrophils Absolute Auto 4.7 x10*3/uL (2.0-8.3); Neutrophils Percent Auto 65.8 % (45-73); Red Blood Count 4.29 X10*6/uL (4.20-5.50)
[2023-08-01 13:43] LABS: Platelet Count 199 X10*3/uL (160-400); White Blood Count 7.1 X10*3/uL (4.8-10.8)
[2023-08-01 13:56] LABS: Alanine Aminotransferase 17 U/L (0-31); Albumin Level 4.2 g/dL (3.5-5.0); Alkaline Phosphatase 63 U/L (39-117); Anion Gap 13 (12-20); Aspartate Amino Transferase 23 U/L (5-31); Bilirubin Direct 0.1 mg/dL (0.0-0.5); Bilirubin Total 0.4 mg/dL (0.0-1.0); Blood Urea Nitrogen 14 mg/dL (9-16); Carbon Dioxide 29 mmol/L (22-29); Chloride 103 mmol/L (96-108); Creatinine Clr Calc Pharmacy 31.9; Estimated Glomerular Filt Rate 49; Glucose Random 167 mg/dL (60-115); Magnesium 2.1 mg/dL (1.6-2.6); Potassium 5.3 mmol/L (3.3-5.1); Sodium 140 mmol/L (135-145); Total Protein 6.8 g/dL (6.5-8.0)
[2023-08-01 16:21] LABS: Appearance Urine Clear; Color Urine Yellow; Glucose Urine UA Negative (Negative); Leukocyte Esterase Urine Small (1+) (Negative); Nitrite Urine Negative (Negative); PH 7.5 (5.0-9.0); UMIC TRIGGER UACC YES; Urine Blood Negative (Negative); Urine Ketones Negative (Negative); Urine Protein Negative (Neg-Trace)
[2023-08-01 16:39] LABS: Bacteria Urine None Seen (None Seen); Hyaline Casts Urine 0-2 /LPF (0-2); RBC Urine 0-2 /HPF (0-2); Squamous Epithelial Cell Urine 0-2 /HPF (0-2); UACC Culture Trigger YES; WBC Urine 0-5 /HPF (0-5)
[2023-08-01 18:00] VITALS: BP 159/66; PULSE 63; RESP 17; TEMP 36.4; O2SAT 95
--- NOTE | 2023-08-01 18:41 | ECG_ITS ---
Test Reason : HYPERKALEMIA Blood Pressure : / mmHG Vent. Rate : 063 BPM Atrial Rate : 063 BPM P-R Int : 170 ms QRS Dur : 084 ms QT Int : 416 ms P-R-T Axes : 037 -15 035 degrees QTc Int : 425 ms Normal sinus rhythm Normal ECG When compared with ECG of 05-APR-2022 10:33, No significant change was found Referred By: Eden Man Electronically Signed By:KELLY SHEN MD
[2023-08-01] MEDS: Gabapentin 300 MG CAPSULE PO (19:03)
[2023-08-01] MEDS: Sodium Polystyrene Sulfon/Sorb 15 GM/60 ML ORAL.SUSP 30 GM PO (19:03)
[2023-08-01 20:30] VITALS: BP 147/84; PULSE 84; RESP 16; TEMP 36.7; O2SAT 94
== END 2023-08-01 20:30 | disposition home or self-care (01) ==
PROVIDERS: Physician Assistant; Emergency Provider Emergency Medicine; PCP Family Medicine
DX: M54.9 Dorsalgia, unspecified (principal); N39.0 Urinary tract infection, site not specified; G47.00 Insomnia, unspecified; Z90.49 Acquired absence of other specified parts of digestive tract
CPT/HCPCS: 36415; 80048; 80076; 81001; 83735; 85025; 87086; 93005; 99283; 99284

== ENCOUNTER → 2023-08-01 18:41 | Outpatient (BNV) | payer MEDICARE, SELFPAY | PROVIDERS: Emergency Provider Emergency Medicine; PCP Family Medicine; Visit Provider Internal Medicine Cardiovascular Disease | DX: E87.5 Hyperkalemia (principal) | CPT/HCPCS: 93010 ==

== ENCOUNTER 2023-08-25 07:18 | Outpatient (REF) | payer MEDICARE, SELFPAY ==
--- NOTE | ~2023-08-25 | MR_ITS ---
EXAMINATION: MR CERVICAL SPINE WITHOUT CONTRAST CLINICAL INFORMATION: Neck pain, cervical radiculopathy COMPARISON: None available. TECHNIQUE: MRI of the cervical spine was obtained using routine sequences without contrast. FINDINGS: The visualized cervical vertebrae are intact with normal alignment. No focal bone lesion with abnormal signal can be seen. Evaluation of the intervertebral discs show: C2/C3: Intervertebral disc height is normal, with normal T2 signal. Mild posterior disc protrusion is seen. Bilateral C2-C3 neural foramina are patent. Bilateral apophyseal joints are intact with normal alignment. C3/C4: Intervertebral disc height is normal, with normal T2 signal. Mild posterior disc protrusion is seen. There is mild spinal stenosis with AP diameter of the spinal canal reduced to 9.6 mm. There is moderate asymmetric right C3-C4 neural foraminal stenosis. Bilateral apophyseal joints are intact with normal alignment. C4/C5: Intervertebral disc height is markedly decreased, with mild loss of T2 signal. Mild posterior disc protrusion is seen. There is moderate asymmetric left C4-C5 neural foraminal stenosis. Bilateral apophyseal joints are intact with normal alignment. C5/C6: Intervertebral disc height is moderately decreased, with moderate loss of T2 signal. No focal disc herniation is seen. Bilateral C5-C6 neural foramina are markedly stenosed. Bilateral apophyseal joints are intact with normal alignment. C6/C7: Intervertebral disc height is markedly decreased, with marked loss of T2 signal. Moderate posterior disc protrusion is seen. Bilateral C6-C7 neural foramina are patent. Bilateral apophyseal joints are intact with normal alignment. C7/T1: Intervertebral disc height is normal, with normal T2 signal. No focal disc herniation is seen. Bilateral C7-T1 neural foramina are patent. Bilateral apophyseal joints are intact with normal alignment. Cervical spinal cord is normal in position and signal. Multilevel bilateral apophyseal joint and uncovertebral joint osteoarthritis with loss of joint space, sclerosis, facet hypertrophy and osteophytosis are seen. Advanced T1-T2 degenerative disc disease with marked loss of disc height and T2 signal, mild posterior disc protrusion are seen. MR/MR cervical spine wo con IMPRESSION: 1. Moderate to marked cervical spondylosis with multilevel degenerative disc disease, facet osteoarthritis and uncovertebral joint osteoarthritis. 2. Mild C2-C3, C3-C4, C4-C5 and moderate C6-C7 posterior disc protrusions are present. 3. Mild C3-C4 spinal stenosis. 4. Moderate asymmetric right C3-C4 neural foraminal stenosis, Moderate asymmetric left C4-C5 neural foraminal stenosis. 5. Marked bilateral C5-C6 neural foraminal stenosis. 6. Advanced T1-T2 degenerative disc disease.
--- NOTE | ~2023-08-25 | MR_ITS ---
EXAMINATION: MR THORACIC SPINE WITHOUT CONTRAST CLINICAL INFORMATION: Back pain, right-sided thoracic radiculopathy COMPARISON: CT scan of thoracic spine on 11/01/2015 TECHNIQUE: MRI of the thoracic spine was obtained using routine sequences without contrast. FINDINGS: The visualized thoracic vertebrae are intact with normal alignment. No focal bone lesion with abnormal signal can be seen. Multilevel degenerative thoracic disc disease is seen with marked loss of disc height and T2 signal from T4-T5 to T9-T10 and T11-T12, most severe at T6-T7 and T7-T8 level. Mild posterior T7-T8, T8-T9, T9-T10 and T11-T12 disc protrusions are present without causing central thoracic spinal stenosis. Bandlike T1 hyperintensity, suppressed STIR signal intensity are seen at inferior T11 and superior T12 vertebral endplates. No significant central thoracic spinal stenosis is found. The visualized bilateral thoracic neural foramina are patent. Bilateral apophyseal joints are intact with normal alignment. Thoracic spinal cord is normal in position and signal. MR/MR thoracic spine wo con IMPRESSION: 1. Unchanged Multilevel degenerative thoracic disc disease, most severe at T6-T7 and T7-T8 level. 2. Mild posterior T7-T8, T8-T9, T9-T10 and T11-T12 disc protrusions without causing central thoracic spinal stenosis. 3. No significant thoracic neural foraminal stenosis. 4. No evidence of thoracic spinal cord compression or signal abnormality.
== END 2023-08-25 07:19 | disposition home or self-care (01) ==
LOC: HO.MRI 07:18
PROVIDERS: PCP Family Medicine; Visit Provider Family Medicine
DX: M51.24 Other intervertebral disc displacement, thoracic region (principal); M50.20 Other cervical disc displacement, unspecified cervical region
CPT/HCPCS: 72141; 72146

== ENCOUNTER 2023-09-01 09:05 | Outpatient (REF) | payer MEDICARE, SELFPAY ==
--- NOTE | ~2023-09-01 | XR_ITS ---
EXAMINATION: XR thoracic spine 2V, XR lumbar spine 2-3V CLINICAL INFORMATION: Back pain COMPARISON: None TECHNIQUE: 2 views of the thoracic spine and 2 views of the lumbar spine FINDINGS: THORACIC SPINE: Vertebral body heights are maintained. Alignment is maintained. Moderate multilevel degenerative disc disease with loss of disc space height and degenerative endplate spurring. Paravertebral soft tissues are unremarkable. LUMBAR SPINE: 5 nonrib-bearing lumbar-type vertebral bodies. Vertebral body heights are maintained. Leftward scoliosis of the lumbar spine. Mild multilevel degenerative disc disease with loss of disc space height, facet arthropathy and disc osteophyte complexes. This is worst at L4/L5. Paravertebral soft tissues are unremarkable. XR/XR lumbar spine 2-3V IMPRESSION: * Moderate degenerative changes of the thoracic and lumbar spine. * No significant spondylolisthesis. * Leftward scoliosis of the lumbar spine.
--- NOTE | ~2023-09-01 | XR_ITS ---
EXAMINATION: XR thoracic spine 2V, XR lumbar spine 2-3V CLINICAL INFORMATION: Back pain COMPARISON: None TECHNIQUE: 2 views of the thoracic spine and 2 views of the lumbar spine FINDINGS: THORACIC SPINE: Vertebral body heights are maintained. Alignment is maintained. Moderate multilevel degenerative disc disease with loss of disc space height and degenerative endplate spurring. Paravertebral soft tissues are unremarkable. LUMBAR SPINE: 5 nonrib-bearing lumbar-type vertebral bodies. Vertebral body heights are maintained. Leftward scoliosis of the lumbar spine. Mild multilevel degenerative disc disease with loss of disc space height, facet arthropathy and disc osteophyte complexes. This is worst at L4/L5. Paravertebral soft tissues are unremarkable. XR/XR thoracic spine 2V IMPRESSION: * Moderate degenerative changes of the thoracic and lumbar spine. * No significant spondylolisthesis. * Leftward scoliosis of the lumbar spine.
== END 2023-09-01 09:06 | disposition home or self-care (01) ==
LOC: HO.HOSX 09:05
PROVIDERS: PCP Family Medicine; Visit Provider Physician Assistant
DX: M54.9 Dorsalgia, unspecified (principal)
CPT/HCPCS: 72070; 72100; 99202

== ENCOUNTER 2023-09-01 09:05 | Outpatient (AMB) | payer MEDICARE, SELFPAY ==
--- NOTE | 2023-09-01 09:32 | A.SPINEOV_ITS ---
Intake Visit Reasons: back pain Intake Note: Ms. Rossi is here today c/o back pain. 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 She has had numerous pains in her spine from time to time over the years including her neck, mid back and lumbar region. There is no radicular pain or tingling numbness down the legs. The primary issue is that when she is standing up and walking around she will get discomfort in multiple areas throughout the spine but currently the main symptom is in the middle of the back along her bra line. She has been dealing with this for the most part with Motrin, Tylenol, occasionally oxycodone. She was on duloxetine but did not like the side effects. She will generally lay down to make the pain go away and will rub some cream on the area. She also uses a heating pad. She comes in today for evaluation with MRI of the cervical, thoracic regions. She has been through pain management with injections time and time again. These things do not ever really seemed to give her much relief. PMH: She is reasonably healthy for her age, history of hypertension, kidney stones, urinary tract infection, tonsillectomy, bladder surgery, hysterectomy and left breast cancer partial mastectomy in 2017 Social hx: She has not smoke, drink use any recreational drugs Medications: Amlodipine, an antacid, albuterol as needed and Motrin or Tylenol as needed Allergies: Sulfate Physical exam: Very pleasant no acute distress, she has tenderness over the midthoracic spine. She has full strength of bilateral lower extremities with normal reflexes. Imaging review: She has a cervical MRI and a thoracic MRI which I reviewed. She has no report yet back for the MRIs. They were done about 5 or 6 days ago. She has some degeneration of the discs throughout the midcervical and diffusely throughout the thoracic spine. No spinal cord compression seen. There is disc degeneration in the lower thoracic spine which appears slightly worse than the mid regions. I had the patient go for standing AP and lateral lumbar and thoracic x-rays and this shows that she develops a scoliotic curvature when she stands. Her bones appear to be osteoporotic. Impression: 83-year-old female presents with a chronic spinal pain in multiple areas of her back and neck, currently dealing with a midthoracic pain which has been quite difficult. It gets worse when she stands gets better when she lays down and put heating pad on it. She will rub cream on it. She has not yet had any injections in this area. Typically they have not worked for her in the past. Her imaging shows diffuse disc degeneration throughout her spinal column. When she stands up she does develop scoliotic curvature seen primarily in the lumbar spine. I think all of these degenerative conditions of her spine are giving her the diffuse pain all along her spinal column. Unfortunately there is not 1 particular area that looks as though would be amenable to surgery. Most of this is just general diffuse arthritis type findings of the spine which come on with aging. I do not think correcting her scoliosis would give her the relief that she is looking for, and in fact could give her worse back pain and might be high risk because of her thin bones. I think she should handle this with seeing her pain management team again or being re-evaluated by another pain management team to see if she can get some kind of pain relief. Thank you for allowing us to care for your patient. The total time spent with this visit with this patient was 70 minutes reviewing history, physical exam, cervical, thoracic and lumbar imaging review, and implementation of treatment plan or further diagnostic testing Manuel Connell MD,PhD [facility] Orders: Orders XR thoracic spine 2V Today M54.9 - Dorsalgia, unspecified Coding Level of Care Code New Pt Level 5 (49344) Diagnoses Back pain M54.9
== END 2023-09-01 10:38 | disposition home or self-care (01) ==
PROVIDERS: PCP Family Medicine; Visit Provider Physician Assistant
DX: M54.9 Dorsalgia, unspecified (principal)
CPT/HCPCS: 99205